=== PATIENT | male | born 1955 | race African-American/Black ===

== ENCOUNTER 2020-11-03 11:29 | Inpatient (IN) | payer OTHER ==
[2020-11-03] MEDS ORDERED: ACETAMINOPHEN 1000 MG/100 ML VIAL (NON FORMULARY) IVPB ONE (11:57)
[2020-11-03] MEDS ORDERED: LACTATED RINGERS SOLUTION 1,000 ML/1,000 ML INFUS.BAG IV STA (11:57)
[2020-11-03] MEDS ORDERED: ACETAMINOPHEN INJECTION 100 ML IVPB ONE (12:03)
[2020-11-03 12:14] LABS: BASO % 0.9 % (0-2.0); EOS % 5.8 % (0-4.5); HEMATOCRIT 33.6 % (35.4-49); HEMOGLOBIN 11.2 GM/dL (11.7-16.9); LYMPH % 13.6 % (8-40); MCH 33.6 pg (25.7-33.7); MCHC 33.2 g/dl (32.0-35.9); MEAN CELL VOLUME 101.1 fl (80-96); MEAN PLT VOLUME 7.3 fl (7.5-11.1); MONO % 9.9 % (3.8-10.2); NEUT % 69.8 % (42.8-82.8); PLATELET COUNT 410 K/MM3 (134-434); RBC 3.33 M/mm3 (4.00-5.60); RDW 16.4 % (11.9-15.9); WHITE BLOOD COUNT 15.6 K/mm3 (4.0-10.0)
[2020-11-03] MEDS ORDERED: morphine CARPU-JECT 8 MG/1 ML DISP.SYRIN IVPUSH ONE (12:20)
[2020-11-03 12:21] LABS: INR 0.97 (0.83-1.09); PROTHROMBIN TIME (PATIENT) 11.9 SEC (9.7-13.0)
[2020-11-03 12:23] LABS: ACTIVATED PTT 30.5 SECONDS (25.2-36.5)
[2020-11-03 12:37] LABS: ALBUMIN 2.8 g/dl (3.4-5.0); CALCIUM 9.1 mg/dL (8.5-10.1)
[2020-11-03 12:38] LABS: BLOOD UREA NITROGEN 76.5 mg/dL (7-18)
[2020-11-03 12:41] LABS: CREATININE 1.8 mg/dL (0.55-1.3)
[2020-11-03 12:42] LABS: BILIRUBIN,TOTAL 0.2 mg/dL (0.2-1); TOT PROT 7.6 g/dl (6.4-8.2)
[2020-11-03] MEDS ORDERED: PIPERACILLIN/TAZOB 2.25 GM 2.25 GM in DEXTROSE 5%-WATER - 50 ML IVPB ONE (12:44)
[2020-11-03] MEDS ORDERED: PIPERACILLIN/TAZOB 2.25 GM 2.25 GM/50 ML BAG IVPB ONE ×2 (13:04→19:24)
[2020-11-03] MEDS ORDERED: MORPHINE SULFATE 2 MG/ML VIAL ONE (13:04)
[2020-11-03 13:25] LABS: ANISOCYTOSIS 1+; MACROCYTOSIS 1+; PLATELET ESTIMATE NORMAL
[2020-11-03] MEDS ORDERED: PATIENT'S OWN MEDICATION (NON-FORMULARY) (Carboxymethylcellulose Sodium [Lubricant Eye Dro OU PRN (17:26)
[2020-11-03] MEDS ORDERED: ONDANSETRON *ODT* 4 MG TABLET SL PRN (17:26)
[2020-11-03] MEDS ORDERED: TORSEMIDE 100 MG TABLET PO SCH (17:30)
[2020-11-03] MEDS ORDERED: amLODIPine BESYLATE 5 MG TABLET (FP) GT SCH (17:30)
[2020-11-03] MEDS ORDERED: ARTIFICIAL TEARS (POLYVINYL ALCOHOL) OPTH DROPS OU PRN (17:36)
[2020-11-03] MEDS ORDERED: LACTATED RINGERS SOLUTION 1,000 ML IV SCH (17:45)
[2020-11-03] MEDS ORDERED: VANCOMYCIN 1 GM in D5W (PRE-DOCKED) 1,000 MG/250 ML IVPB SCH (18:15)
[2020-11-03] MEDS ORDERED: VANCOMYCIN 1 GRAM (PRE-DOCKED) 1,000 MG/250 ML BAG IVPB ONE (18:45)
[2020-11-03] MEDS ORDERED: CLINDAMYCIN 600MG PREMIX IVPB 600 MG/50 ML BAG IVPB ONE (19:24)
[2020-11-03] MEDS: CLINDAMYCIN 600MG PREMIX IVPB 600 MG/50 ML BAG IVPB SCH (19:27)
[2020-11-03] MEDS: PIPERACILLIN/TAZOB 2.25 GM 2.25 GM in DEXTROSE 5%-WATER - 50 ML IVPB SCH (19:45)
[2020-11-03] MEDS: CALCIUM ACETATE 667 MG CAPSULE (FP) GT SCH (19:45)
[2020-11-03] MEDS ORDERED: PT OWN MED DRAWER 7, Y5N ONE (21:31)
[2020-11-03] MEDS ORDERED: PATIENT'S OWN MEDICATION (NON-FORMULARY) (Omeprazole 20 MG Capsule.Dr) GT SCH (22:00)
[2020-11-03] MEDS: FAMOTIDINE 40 MG/5 ML ORAL SUSPENSION NR SCH (22:43)
[2020-11-03] MEDS: POLYETHYLENE GLYCOL 3350 119 GM BTL GT SCH (22:43)
[2020-11-03] MEDS: MIRTAZAPINE 15 MG TABLET (FP) GT SCH (22:43)
[2020-11-03] MEDS: DOCUSATE NA 100 MG/10 ML UNIT-DOSE CUPS GT SCH (22:43)
[2020-11-04] MEDS ORDERED: DEXTROSE 5%-WATER - 50 ML IVPB ONE ×2 (02:07→09:47)
[2020-11-04] MEDS ORDERED: PIPERACILLIN/TAZOBACTAM 2.25 GM VIAL IVPB ONE ×2 (02:07→09:47)
[2020-11-04] MEDS: PIPERACILLIN/TAZOB 2.25 GM 2.25 GM in DEXTROSE 5%-WATER - 50 ML IVPB SCH ×3 (02:08→17:43)
[2020-11-04] MEDS: CLINDAMYCIN 600MG PREMIX IVPB 600 MG/50 ML BAG IVPB SCH ×2 (02:52→11:10)
[2020-11-04] MEDS: LEVOTHYROXINE NA 100 MCG TABLET (FP) GT SCH (07:47)
[2020-11-04] MEDS ORDERED: ACETAMINOPHEN 1000 MG/100 ML VIAL (NON FORMULARY) IVPB PRN ×2 (08:56→17:50)
[2020-11-04] MEDS ORDERED: PT OWN MED DRAWER 7, Y5N ONE (09:47)
[2020-11-04 09:52] LABS: EPI CELLS >36 /uL (0-25.1); HYALINE CASTS 1 /uL (0-3.1); PH,URINE 6.5 (5.0-8.0); URINE APPEARANCE CLEAR; URINE BACTERIA 24 /uL (0-1359); URINE BILIRUBIN NEGATIVE (NEGATIVE); URINE COLOR YELLOW; URINE GLUCOSE (UA) NEGATIVE (NEGATIVE); URINE KETONE NEGATIVE (NEGATIVE); URINE LEUK ESTERASE 2+ (NEGATIVE); URINE NITRITE NEGATIVE (NEGATIVE); URINE PROTEIN NEGATIVE (NEGATIVE); URINE RBC 14 /uL (0-23.9); URINE UROBILINOGEN 0.2 mg/dL (0.2-1.0); URINE WBC 131 /uL (0-25.8)
[2020-11-04] MEDS ORDERED: TORSEMIDE 100 MG TABLET PO SCH (10:00)
[2020-11-04] MEDS ORDERED: CLOPIDOGREL BISULFATE 75 MG TABLET (FP) GT SCH (10:00)
[2020-11-04] MEDS ORDERED: ENOXAPARIN NA (PORCINE) 30 MG/0.3 ML DISP.SYRIN SQ SCH (10:00)
[2020-11-04] MEDS ORDERED: LEVOTHYROXINE SODIUM 100 MCG GT SCH (10:00)
[2020-11-04] MEDS ORDERED: PATIENT'S OWN MEDICATION (NON-FORMULARY) (Multivitamin [Multiple Vitamins] 1 EACH Tablet) GT SCH (10:00)
[2020-11-04] MEDS: DOCUSATE NA 100 MG/10 ML UNIT-DOSE CUPS GT SCH ×2 (11:10→22:17)
[2020-11-04] MEDS: CALCIUM ACETATE 667 MG CAPSULE (FP) GT SCH ×4 (11:11→17:43)
[2020-11-04] MEDS: LACTATED RINGERS SOLUTION 1,000 ML IV SCH (11:11)
[2020-11-04] MEDS: MULTIVIT-MINERALS ORAL LIQUID GT SCH (11:11)
[2020-11-04] MEDS: ASPIRIN 81 MG CHEWABLE TABLETS GT SCH (11:11)
[2020-11-04] MEDS: amLODIPine BESYLATE 2.5 MG TABLET (FP) GT SCH (11:12)
[2020-11-04] MEDS: FOLIC ACID 1 MG TABLET (FP) GT SCH (11:12)
[2020-11-04] MEDS: ZINC SULFATE 220 MG CAPSULE (FP) GT SCH (11:13)
[2020-11-04] MEDS: FAMOTIDINE 40 MG/5 ML ORAL SUSPENSION NR SCH ×2 (11:13→22:17)
[2020-11-04] MEDS: THIAMINE HCL 100 MG TABLET (FP) PO SCH (11:13)
[2020-11-04] MEDS ORDERED: VANCOMYCIN 1 GRAM (PRE-DOCKED) 1,000 MG/250 ML BAG IVPB SCH ×2 (12:15→19:00)
[2020-11-04 13:02] LABS: BASO % 0.5 % (0-2.0); EOS % 5.7 % (0-4.5); HEMATOCRIT 33.9 % (35.4-49); LYMPH % 7.3 % (8-40); MCH 33.4 pg (25.7-33.7); MCHC 32.6 g/dl (32.0-35.9); MEAN CELL VOLUME 102.6 fl (80-96); MEAN PLT VOLUME 7.5 fl (7.5-11.1); NEUT % 80.5 % (42.8-82.8); PLATELET COUNT 419 K/MM3 (134-434); RDW 16.5 % (11.9-15.9); RETICULOCYTES 2.26 % (0.5-1.5)
[2020-11-04 13:24] LABS: CALCIUM 9.1 mg/dL (8.5-10.1)
[2020-11-04 13:25] LABS: ALBUMIN 2.6 g/dl (3.4-5.0); INR 1.1 (0.83-1.09); MAGNESIUM 2.7 mg/dL (1.8-2.4); PROTHROMBIN TIME (PATIENT) 13.3 SEC (9.7-13.0)
[2020-11-04 13:28] LABS: CREATININE 1.8 mg/dL (0.55-1.3); PHOSPHOROUS 4.6 mg/dL (2.5-4.9)
[2020-11-04 13:29] LABS: BILIRUBIN,TOTAL 0.6 mg/dL (0.2-1); TOT PROT 7.3 g/dl (6.4-8.2)
[2020-11-04] MEDS ORDERED: SODIUM CHLORIDE 250 ML IV PRN (15:40)
[2020-11-04 17:08] VITALS: BMI 15.6
[2020-11-04] MEDS ORDERED: PIPERACILLIN/TAZOB 2.25 GM 2.25 GM in DEXTROSE 5%-WATER - 50 ML IVPB SCH (18:00)
[2020-11-04 21:15] LABS: EPI CELLS 10 /uL (0-25.1); HYALINE CASTS 0 /uL (0-3.1); PH,URINE 6.5 (5.0-8.0); URINE APPEARANCE CLOUDY; URINE BACTERIA 228 /uL (0-1359); URINE BILIRUBIN NEGATIVE (NEGATIVE); URINE COLOR YELLOW; URINE GLUCOSE (UA) NEGATIVE (NEGATIVE); URINE KETONE NEGATIVE (NEGATIVE); URINE LEUK ESTERASE 3+ (NEGATIVE); URINE NITRITE NEGATIVE (NEGATIVE); URINE PROTEIN TRACE (NEGATIVE); URINE RBC 11 /uL (0-23.9); URINE UROBILINOGEN 0.2 mg/dL (0.2-1.0); URINE WBC 599 /uL (0-25.8)
[2020-11-04] MEDS: MIRTAZAPINE 15 MG TABLET (FP) GT SCH (22:17)
[2020-11-04] MEDS: POLYETHYLENE GLYCOL 3350 119 GM BTL GT SCH (22:17)
[2020-11-05] MEDS ORDERED: PIPERACILLIN/TAZOBACTAM 2.25 GM VIAL IVPB ONE ×3 (01:48→16:59)
[2020-11-05] MEDS ORDERED: DEXTROSE 5%-WATER - 50 ML IVPB ONE ×3 (01:49→16:59)
[2020-11-05] MEDS: LACTATED RINGERS SOLUTION 1,000 ML IV SCH ×3 (02:09→14:24)
[2020-11-05] MEDS: PIPERACILLIN/TAZOB 2.25 GM 2.25 GM in DEXTROSE 5%-WATER - 50 ML IVPB SCH ×3 (02:09→17:16)
[2020-11-05] MEDS: CALCIUM ACETATE 667 MG CAPSULE (FP) GT SCH ×3 (08:00→17:13)
[2020-11-05] MEDS: LEVOTHYROXINE NA 100 MCG TABLET (FP) GT SCH (08:04)
[2020-11-05 08:42] LABS: HEMATOCRIT 30.1 % (35.4-49); MCH 34.5 pg (25.7-33.7); MCHC 33.4 g/dl (32.0-35.9); MEAN CELL VOLUME 103.2 fl (80-96); MEAN PLT VOLUME 7.6 fl (7.5-11.1); PLATELET COUNT 323 K/MM3 (134-434); RBC 2.91 M/mm3 (4.00-5.60); RDW 16.8 % (11.9-15.9); WHITE BLOOD COUNT 9.8 K/mm3 (4.0-10.0)
[2020-11-05 09:10] LABS: MAGNESIUM 2.5 mg/dL (1.8-2.4)
[2020-11-05 09:13] LABS: CREATININE 1.4 mg/dL (0.55-1.3); PHOSPHOROUS 2.8 mg/dL (2.5-4.9)
[2020-11-05 09:14] LABS: BILIRUBIN,TOTAL 0.4 mg/dL (0.2-1); TOT PROT 5.4 g/dl (6.4-8.2)
[2020-11-05 09:27] LABS: ALBUMIN 1.8 g/dl (3.4-5.0); CALCIUM 7.7 mg/dL (8.5-10.1)
[2020-11-05] MEDS: FOLIC ACID 1 MG TABLET (FP) GT SCH (12:09)
[2020-11-05] MEDS: ZINC SULFATE 220 MG CAPSULE (FP) GT SCH (12:09)
[2020-11-05] MEDS: THIAMINE HCL 100 MG TABLET (FP) PO SCH (12:09)
[2020-11-05] MEDS: DOCUSATE NA 100 MG/10 ML UNIT-DOSE CUPS GT SCH ×2 (12:09→22:37)
[2020-11-05] MEDS: ASPIRIN 81 MG CHEWABLE TABLETS GT SCH (12:10)
[2020-11-05] MEDS: MULTIVIT-MINERALS ORAL LIQUID GT SCH (12:10)
[2020-11-05] MEDS: FAMOTIDINE 40 MG/5 ML ORAL SUSPENSION NR SCH ×2 (12:11→22:38)
[2020-11-05] MEDS: HEPARIN NA (PORCINE) 5,000 UNITS/ML 1ML VIAL SQ SCH (22:37)
[2020-11-05] MEDS: MIRTAZAPINE 15 MG TABLET (FP) GT SCH (22:37)
[2020-11-05] MEDS: POLYETHYLENE GLYCOL 3350 119 GM BTL GT SCH (22:39)
[2020-11-06] MEDS ORDERED: DEXTROSE 5%-WATER - 50 ML IVPB ONE ×3 (02:51→17:26)
[2020-11-06] MEDS ORDERED: PIPERACILLIN/TAZOBACTAM 2.25 GM VIAL IVPB ONE ×3 (02:51→17:26)
[2020-11-06] MEDS: PIPERACILLIN/TAZOB 2.25 GM 2.25 GM in DEXTROSE 5%-WATER - 50 ML IVPB SCH ×3 (02:58→17:30)
[2020-11-06] MEDS: HEPARIN NA (PORCINE) 5,000 UNITS/ML 1ML VIAL SQ SCH ×3 (06:29→22:09)
[2020-11-06] MEDS: LEVOTHYROXINE NA 100 MCG TABLET (FP) GT SCH (06:29)
[2020-11-06 09:55] LABS: HEMATOCRIT 33.1 % (35.4-49); HEMOGLOBIN 10.8 GM/dL (11.7-16.9); MCH 34.2 pg (25.7-33.7); MCHC 32.6 g/dl (32.0-35.9); MEAN CELL VOLUME 104.9 fl (80-96); MEAN PLT VOLUME 7.4 fl (7.5-11.1); PLATELET COUNT 375 K/MM3 (134-434); RBC 3.16 M/mm3 (4.00-5.60); RDW 16.5 % (11.9-15.9); WHITE BLOOD COUNT 10.7 K/mm3 (4.0-10.0)
[2020-11-06] MEDS ORDERED: CLOPIDOGREL BISULFATE 75 MG TABLET (FP) PO SCH (10:00)
[2020-11-06 10:12] LABS: BLOOD UREA NITROGEN 45.6 mg/dL (7-18); MAGNESIUM 2.6 mg/dL (1.8-2.4)
[2020-11-06 10:15] LABS: CREATININE 1.6 mg/dL (0.55-1.3); PHOSPHOROUS 2.6 mg/dL (2.5-4.9)
[2020-11-06 10:16] LABS: BILIRUBIN,TOTAL 0.2 mg/dL (0.2-1)
[2020-11-06 10:18] LABS: ALBUMIN 2.3 g/dl (3.4-5.0); CALCIUM 8.4 mg/dL (8.5-10.1); TOT PROT 6.6 g/dl (6.4-8.2)
[2020-11-06] MEDS: ZINC SULFATE 220 MG CAPSULE (FP) GT SCH (10:45)
[2020-11-06] MEDS: THIAMINE HCL 100 MG TABLET (FP) PO SCH (10:45)
[2020-11-06] MEDS: ASPIRIN 81 MG CHEWABLE TABLETS GT SCH (10:45)
[2020-11-06] MEDS: CALCIUM ACETATE 667 MG CAPSULE (FP) GT SCH ×3 (10:45→17:39)
[2020-11-06] MEDS: FOLIC ACID 1 MG TABLET (FP) GT SCH (10:46)
[2020-11-06] MEDS: CLOPIDOGREL BISULFATE 75 MG TABLET (FP) GT SCH (10:46)
[2020-11-06] MEDS: DOCUSATE NA 100 MG/10 ML UNIT-DOSE CUPS GT SCH ×2 (10:46→22:09)
[2020-11-06] MEDS: MULTIVIT-MINERALS ORAL LIQUID GT SCH (10:46)
[2020-11-06] MEDS: FAMOTIDINE 40 MG/5 ML ORAL SUSPENSION NR SCH ×2 (10:48→22:09)
[2020-11-06] MEDS: amLODIPine BESYLATE 2.5 MG TABLET (FP) GT SCH (10:55)
[2020-11-06] MEDS: DEXTROSE 5%-WATER - 1,000 ML IV SCH (15:20)
[2020-11-06] MEDS: LACTATED RINGERS SOLUTION 1,000 ML IV SCH (15:21)
[2020-11-06] MEDS: MIRTAZAPINE 15 MG TABLET (FP) GT SCH (22:09)
[2020-11-06] MEDS: POLYETHYLENE GLYCOL 3350 119 GM BTL GT SCH (22:11)
[2020-11-07] MEDS ORDERED: PIPERACILLIN/TAZOBACTAM 2.25 GM VIAL IVPB ONE ×3 (01:18→16:41)
[2020-11-07] MEDS ORDERED: DEXTROSE 5%-WATER - 50 ML IVPB ONE ×3 (01:19→16:41)
[2020-11-07] MEDS: PIPERACILLIN/TAZOB 2.25 GM 2.25 GM in DEXTROSE 5%-WATER - 50 ML IVPB SCH ×3 (02:24→17:25)
[2020-11-07] MEDS: HEPARIN NA (PORCINE) 5,000 UNITS/ML 1ML VIAL SQ SCH ×4 (05:45→21:29)
[2020-11-07] MEDS: LEVOTHYROXINE NA 100 MCG TABLET (FP) GT SCH (06:02)
[2020-11-07 09:14] LABS: ALBUMIN 2.1 g/dl (3.4-5.0)
[2020-11-07 09:15] LABS: BLOOD UREA NITROGEN 34.6 mg/dL (7-18); CALCIUM 8.2 mg/dL (8.5-10.1)
[2020-11-07 09:16] LABS: TOT PROT 6.3 g/dl (6.4-8.2)
[2020-11-07 09:17] LABS: CREATININE 1.4 mg/dL (0.55-1.3)
[2020-11-07 09:22] LABS: BILIRUBIN,TOTAL 0.2 mg/dL (0.2-1)
[2020-11-07] MEDS ORDERED: POVIDONE-IODINE 10% SOLN 118 ML BOTTLE TP ONE (09:41)
[2020-11-07] MEDS ORDERED: PT OWN MED DRAWER 7, Y5N ONE (10:50)
[2020-11-07] MEDS ORDERED: POTASSIUM CHLORIDE ORAL LIQUID 20 MEQ/15 ML PO ONE (10:53)
[2020-11-07] MEDS ORDERED: POTASSIUM CHLORIDE TABS 20 MEQ TABLET.ER (FP) PO ONE (10:53)
[2020-11-07] MEDS ORDERED: POTASSIUM CHLORIDE ORAL LIQUID 20 MEQ/15 ML GT ONE (10:53)
[2020-11-07] MEDS: SILVER SULFADIAZINE 1% TOP CREAM 50 GM JAR TP SCH (10:54)
[2020-11-07] MEDS: CALCIUM ACETATE 667 MG CAPSULE (FP) GT SCH ×4 (10:54→16:31)
[2020-11-07] MEDS: DOCUSATE NA 100 MG/10 ML UNIT-DOSE CUPS GT SCH ×2 (10:54→21:30)
[2020-11-07] MEDS: CLOPIDOGREL BISULFATE 75 MG TABLET (FP) GT SCH (10:54)
[2020-11-07] MEDS: ZINC SULFATE 220 MG CAPSULE (FP) GT SCH (10:54)
[2020-11-07] MEDS: FOLIC ACID 1 MG TABLET (FP) GT SCH (10:54)
[2020-11-07] MEDS: ASPIRIN 81 MG CHEWABLE TABLETS GT SCH (10:54)
[2020-11-07] MEDS: THIAMINE HCL 100 MG TABLET (FP) PO SCH (10:54)
[2020-11-07] MEDS: MULTIVIT-MINERALS ORAL LIQUID GT SCH (10:55)
[2020-11-07] MEDS: FAMOTIDINE 40 MG/5 ML ORAL SUSPENSION NR SCH ×2 (10:56→23:01)
[2020-11-07] MEDS: KCL 10 MEQ IVPB 10 MEQ/100 ML INFUS.BAG IVPB SCH ×3 (11:05→16:30)
[2020-11-07] MEDS: amLODIPine BESYLATE 2.5 MG TABLET (FP) GT SCH (11:06)
[2020-11-07] MEDS: POTASSIUM CHLORIDE 10 MEQ in DEXTROSE 5%-WATER - 1,000 ML IV SCH ×2 (14:50→16:30)
[2020-11-07] MEDS: DEXTROSE 5%-WATER - 1,000 ML IV SCH (17:26)
[2020-11-07] MEDS: POLYETHYLENE GLYCOL 3350 119 GM BTL GT SCH (21:30)
[2020-11-07] MEDS: MIRTAZAPINE 15 MG TABLET (FP) GT SCH (22:00)
[2020-11-08] MEDS ORDERED: PIPERACILLIN/TAZOBACTAM 2.25 GM VIAL IVPB ONE ×3 (00:59→17:37)
[2020-11-08] MEDS ORDERED: DEXTROSE 5%-WATER - 50 ML IVPB ONE ×3 (00:59→17:37)
[2020-11-08] MEDS: PIPERACILLIN/TAZOB 2.25 GM 2.25 GM in DEXTROSE 5%-WATER - 50 ML IVPB SCH ×3 (01:40→17:45)
[2020-11-08] MEDS: HEPARIN NA (PORCINE) 5,000 UNITS/ML 1ML VIAL SQ SCH ×3 (05:10→21:59)
[2020-11-08] MEDS: LEVOTHYROXINE NA 100 MCG TABLET (FP) GT SCH (06:08)
[2020-11-08] MEDS: SILVER SULFADIAZINE 1% TOP CREAM 50 GM JAR TP SCH (11:03)
[2020-11-08] MEDS: FOLIC ACID 1 MG TABLET (FP) GT SCH (11:03)
[2020-11-08] MEDS: THIAMINE HCL 100 MG TABLET (FP) PO SCH (11:04)
[2020-11-08] MEDS: ASPIRIN 81 MG CHEWABLE TABLETS GT SCH (11:04)
[2020-11-08] MEDS: CLOPIDOGREL BISULFATE 75 MG TABLET (FP) GT SCH (11:04)
[2020-11-08] MEDS: CALCIUM ACETATE 667 MG CAPSULE (FP) GT SCH ×3 (11:05→17:45)
[2020-11-08] MEDS: DOCUSATE NA 100 MG/10 ML UNIT-DOSE CUPS GT SCH ×2 (11:05→21:59)
[2020-11-08] MEDS: ZINC SULFATE 220 MG CAPSULE (FP) GT SCH (11:05)
[2020-11-08] MEDS: MULTIVIT-MINERALS ORAL LIQUID GT SCH (11:05)
[2020-11-08] MEDS: FAMOTIDINE 40 MG/5 ML ORAL SUSPENSION NR SCH ×2 (11:06→22:00)
[2020-11-08] MEDS ORDERED: ACETAMINOPHEN 325 MG TABLET (FP) NR PRN (11:11)
[2020-11-08] MEDS ORDERED: POTASSIUM CHLORIDE ORAL LIQUID 20 MEQ/15 ML GT ONE (11:13)
[2020-11-08] MEDS ORDERED: ACETAMINOPHEN 650 MG/20.3 ML ORAL SOLUTION (CUPS) GT PRN (11:18)
[2020-11-08] MEDS ORDERED: morphine SULFATE 4 MG/ML VIAL IVPUSH ONE (17:01)
[2020-11-08] MEDS ORDERED: PT OWN MED DRAWER 7, Y5N ONE (21:14)
[2020-11-08] MEDS ORDERED: INSULIN (NOVOLOG) ASPART 100 UNITS/ML 10ML VIAL ONE (21:15)
[2020-11-08] MEDS: POLYETHYLENE GLYCOL 3350 119 GM BTL GT SCH (21:59)
[2020-11-08] MEDS: MIRTAZAPINE 15 MG TABLET (FP) GT SCH (21:59)
[2020-11-09] MEDS ORDERED: DEXTROSE 5%-WATER - 50 ML IVPB ONE ×3 (01:59→17:57)
[2020-11-09] MEDS ORDERED: PIPERACILLIN/TAZOBACTAM 2.25 GM VIAL IVPB ONE ×3 (01:59→17:57)
[2020-11-09] MEDS: PIPERACILLIN/TAZOB 2.25 GM 2.25 GM in DEXTROSE 5%-WATER - 50 ML IVPB SCH ×3 (02:20→18:31)
[2020-11-09] MEDS: LEVOTHYROXINE NA 100 MCG TABLET (FP) GT SCH (06:06)
[2020-11-09] MEDS: HEPARIN NA (PORCINE) 5,000 UNITS/ML 1ML VIAL SQ SCH ×3 (06:06→22:55)
[2020-11-09 08:33] LABS: BASO % 0.9 % (0-2.0); EOS % 13.7 % (0-4.5); HEMATOCRIT 32.1 % (35.4-49); HEMOGLOBIN 10.3 GM/dL (11.7-16.9); LYMPH % 12.5 % (8-40); MCH 33.2 pg (25.7-33.7); MEAN CELL VOLUME 103.6 fl (80-96); MEAN PLT VOLUME 7.7 fl (7.5-11.1); MONO % 8.9 % (3.8-10.2); PLATELET COUNT 393 K/MM3 (134-434); RBC 3.09 M/mm3 (4.00-5.60); RDW 16.6 % (11.9-15.9)
[2020-11-09 08:54] LABS: ALBUMIN 2.2 g/dl (3.4-5.0); BLOOD UREA NITROGEN 26.3 mg/dL (7-18); CALCIUM 9.1 mg/dL (8.5-10.1); MAGNESIUM 2.3 mg/dL (1.8-2.4)
[2020-11-09 08:57] LABS: CREATININE 1.5 mg/dL (0.55-1.3); PHOSPHOROUS 4.7 mg/dL (2.5-4.9)
[2020-11-09 08:58] LABS: BILIRUBIN,TOTAL 0.2 mg/dL (0.2-1); TOT PROT 6.4 g/dl (6.4-8.2)
[2020-11-09] MEDS: CALCIUM ACETATE 667 MG CAPSULE (FP) GT SCH ×3 (09:25→18:31)
[2020-11-09 10:24] LABS: ANISOCYTOSIS 2+; MACROCYTOSIS 0; PLATELET ESTIMATE NORMAL
[2020-11-09] MEDS: FOLIC ACID 1 MG TABLET (FP) GT SCH (11:25)
[2020-11-09] MEDS: ASPIRIN 81 MG CHEWABLE TABLETS GT SCH (11:25)
[2020-11-09] MEDS: CLOPIDOGREL BISULFATE 75 MG TABLET (FP) GT SCH (11:25)
[2020-11-09] MEDS: THIAMINE HCL 100 MG TABLET (FP) PO SCH (11:25)
[2020-11-09] MEDS: FAMOTIDINE 40 MG/5 ML ORAL SUSPENSION NR SCH ×2 (11:26→22:53)
[2020-11-09] MEDS: ZINC SULFATE 220 MG CAPSULE (FP) GT SCH (11:26)
[2020-11-09] MEDS: DOCUSATE NA 100 MG/10 ML UNIT-DOSE CUPS GT SCH ×3 (11:26→23:00)
[2020-11-09] MEDS: SILVER SULFADIAZINE 1% TOP CREAM 50 GM JAR TP SCH (11:27)
[2020-11-09] MEDS: MULTIVIT-MINERALS ORAL LIQUID GT SCH (11:27)
[2020-11-09] MEDS: amLODIPine BESYLATE 2.5 MG TABLET (FP) GT SCH (11:30)
[2020-11-09] MEDS: POLYETHYLENE GLYCOL 3350 119 GM BTL GT SCH (22:54)
[2020-11-09] MEDS: MIRTAZAPINE 15 MG TABLET (FP) GT SCH (22:54)
[2020-11-10] MEDS: PIPERACILLIN/TAZOB 2.25 GM 2.25 GM in DEXTROSE 5%-WATER - 50 ML IVPB SCH ×3 (01:24→18:13)
[2020-11-10] MEDS ORDERED: PIPERACILLIN/TAZOBACTAM 2.25 GM VIAL IVPB ONE ×3 (01:24→18:04)
[2020-11-10] MEDS ORDERED: DEXTROSE 5%-WATER - 50 ML IVPB ONE ×3 (01:24→18:04)
[2020-11-10] MEDS: HEPARIN NA (PORCINE) 5,000 UNITS/ML 1ML VIAL SQ SCH ×3 (05:24→21:28)
[2020-11-10] MEDS: LEVOTHYROXINE NA 100 MCG TABLET (FP) GT SCH (06:00)
[2020-11-10] MEDS: CALCIUM ACETATE 667 MG CAPSULE (FP) GT SCH ×3 (10:00→18:14)
[2020-11-10 11:16] LABS: HEMATOCRIT 31.4 % (35.4-49); HEMOGLOBIN 10.3 GM/dL (11.7-16.9); MCH 33.5 pg (25.7-33.7); MCHC 32.8 g/dl (32.0-35.9); MEAN CELL VOLUME 102.3 fl (80-96); MEAN PLT VOLUME 7.5 fl (7.5-11.1); PLATELET COUNT 409 K/MM3 (134-434); RBC 3.07 M/mm3 (4.00-5.60); RDW 16.2 % (11.9-15.9); WHITE BLOOD COUNT 9.8 K/mm3 (4.0-10.0)
[2020-11-10] MEDS: CLOPIDOGREL BISULFATE 75 MG TABLET (FP) GT SCH (11:33)
[2020-11-10] MEDS: FAMOTIDINE 40 MG/5 ML ORAL SUSPENSION NR SCH ×2 (11:33→21:28)
[2020-11-10] MEDS: FOLIC ACID 1 MG TABLET (FP) GT SCH (11:33)
[2020-11-10] MEDS: THIAMINE HCL 100 MG TABLET (FP) PO SCH (11:34)
[2020-11-10] MEDS: DOCUSATE NA 100 MG/10 ML UNIT-DOSE CUPS GT SCH ×2 (11:34→21:24)
[2020-11-10] MEDS: ASPIRIN 81 MG CHEWABLE TABLETS GT SCH (11:34)
[2020-11-10] MEDS: ZINC SULFATE 220 MG CAPSULE (FP) GT SCH (11:34)
[2020-11-10] MEDS: MULTIVIT-MINERALS ORAL LIQUID GT SCH (11:34)
[2020-11-10 11:47] LABS: CALCIUM 9.5 mg/dL (8.5-10.1)
[2020-11-10 11:48] LABS: BLOOD UREA NITROGEN 24.2 mg/dL (7-18)
[2020-11-10] MEDS: amLODIPine BESYLATE 2.5 MG TABLET (FP) GT SCH (11:48)
[2020-11-10 11:51] LABS: CREATININE 1.6 mg/dL (0.55-1.3)
[2020-11-10] MEDS: SILVER SULFADIAZINE 1% TOP CREAM 50 GM JAR TP SCH (13:36)
[2020-11-10] MEDS ORDERED: POVIDONE-IODINE OINTMENT 10% - 28.4 GM TUBE TP ONE (14:00)
[2020-11-10] MEDS: POLYETHYLENE GLYCOL 3350 119 GM BTL GT SCH (21:24)
[2020-11-10] MEDS: MIRTAZAPINE 15 MG TABLET (FP) GT SCH (21:28)
[2020-11-11] MEDS ORDERED: PIPERACILLIN/TAZOBACTAM 2.25 GM VIAL IVPB ONE ×3 (01:09→08:39)
[2020-11-11] MEDS ORDERED: DEXTROSE 5%-WATER - 50 ML IVPB ONE ×3 (01:10→08:39)
[2020-11-11] MEDS: PIPERACILLIN/TAZOB 2.25 GM 2.25 GM in DEXTROSE 5%-WATER - 50 ML IVPB SCH ×2 (01:45→10:18)
[2020-11-11] MEDS: LEVOTHYROXINE NA 100 MCG TABLET (FP) GT SCH (06:31)
[2020-11-11] MEDS: HEPARIN NA (PORCINE) 5,000 UNITS/ML 1ML VIAL SQ SCH ×2 (06:31→13:15)
[2020-11-11] MEDS ORDERED: PT OWN MED DRAWER 7, Y5N ONE ×2 (10:13→12:36)
[2020-11-11] MEDS: DOCUSATE NA 100 MG/10 ML UNIT-DOSE CUPS GT SCH ×2 (10:18→11:22)
[2020-11-11] MEDS: ASPIRIN 81 MG CHEWABLE TABLETS GT SCH (10:19)
[2020-11-11] MEDS: CALCIUM ACETATE 667 MG CAPSULE (FP) GT SCH ×2 (10:19→13:15)
[2020-11-11] MEDS: THIAMINE HCL 100 MG TABLET (FP) PO SCH (10:19)
[2020-11-11] MEDS: CLOPIDOGREL BISULFATE 75 MG TABLET (FP) GT SCH (10:19)
[2020-11-11] MEDS: FOLIC ACID 1 MG TABLET (FP) GT SCH (10:19)
[2020-11-11] MEDS: ZINC SULFATE 220 MG CAPSULE (FP) GT SCH (10:19)
[2020-11-11] MEDS: MULTIVIT-MINERALS ORAL LIQUID GT SCH (10:20)
[2020-11-11] MEDS: amLODIPine BESYLATE 2.5 MG TABLET (FP) GT SCH (10:23)
[2020-11-11] MEDS: FAMOTIDINE 40 MG/5 ML ORAL SUSPENSION NR SCH (13:24)
[2020-11-11 13:52] VITALS: BP 114/62; PULSE 79; TEMP 97.3
== END 2020-11-11 14:06 | DRG 871 ==
LOC: JER 11:29 → JERBED 17:53 → J5S 20:26
PROVIDERS: ATTEND Internal Medicine
PROC: 0HBKXZZ Excision of Right Lower Leg Skin, External Approach (ICD-10-PCS; principal; 2020-11-06)
PROC: 05PYX3Z Removal of Infusion Device from Upper Vein, External Approach (ICD-10-PCS; 2020-11-10)
DX: A41.9 Sepsis, unspecified organism (principal); E43 Unspecified severe protein-calorie malnutrition; N18.6 End stage renal disease; R64 Cachexia; Z68.1 Body mass index [BMI] 19.9 or less, adult; M86.9 Osteomyelitis, unspecified; J96.10 Chronic respiratory failure, unspecified whether with hypoxia or hypercapnia; E87.0 Hyperosmolality and hypernatremia; L97.919 Non-pressure chronic ulcer of unspecified part of right lower leg with unspecified severity; I70.239 Atherosclerosis of native arteries of right leg with ulceration of unspecified site; N18.9 Chronic kidney disease, unspecified; Z93.0 Tracheostomy status; Z93.1 Gastrostomy status; L89.610 Pressure ulcer of right heel, unstageable; L89.620 Pressure ulcer of left heel, unstageable; E03.9 Hypothyroidism, unspecified; I25.10 Atherosclerotic heart disease of native coronary artery without angina pectoris; D72.829 Elevated white blood cell count, unspecified; E87.6 Hypokalemia; R74.01 Elevation of levels of liver transaminase levels
CPT/HCPCS: 36415; 71045-TC-FY; 73590-TC-RT-FY; 73718-TC-RT; 74230-TC-FY; 76775-TC; 80048; 80053; 80074; 81003; 82272; 82436; 82570; 82607; 82728; 82746; 82962; 83540; 83550; 83605; 83735; 84100; 84133; 84300; 84443; 85025; 85027; 85045; 85610; 85651; 85730; 86140; 87040; 87086; 87804; 92611-GN; 93005; 93010; 97116-GP; 97162-GP; 99291; C9803; G0480; J0131; J1644; U0003; U0005

== ENCOUNTER 2020-12-22 10:25 | Emergency (ER) | payer OTHER ==
[2020-12-22 11:14] VITALS: BMI 24.5
[2020-12-22 16:10] VITALS: BP 112/78; PULSE 90; TEMP 98.2
== END 2020-12-22 16:11 | disposition home or self-care (01) ==
LOC: JER 10:25
DX: Z48.00 Encounter for change or removal of nonsurgical wound dressing (principal)
CPT/HCPCS: 99281-25; G0463-25

== ENCOUNTER 2021-02-20 09:56 | Inpatient (IN) | payer OTHER ==
[2021-02-20] MEDS ORDERED: ACETAMINOPHEN INJECTION 100 ML IVPB ONE (10:17)
[2021-02-20 10:42] LABS: VENOUS BASE EXCESS -8.4 mmol/L (-2-2); VENOUS O2 SATURATION 68.5 % (70-80); VENOUS PCO2 46.3 mmHg (38-52); VENOUS PH 7.232 (7.310-7.410)
[2021-02-20] MEDS ORDERED: VANCOMYCIN 1 GM in D5W (PRE-DOCKED) 1,000 MG/250 ML IVPB ONE (10:45)
[2021-02-20] MEDS ORDERED: PIPERACILLIN/TAZOB 3.375 GM 3.375 GM in DEXTROSE 5%-WATER - 50 ML IVPB ONE (10:46)
[2021-02-20 10:48] LABS: HEMOGLOBIN 12.2 GM/dL (11.7-16.9); MCH 34.8 pg (25.7-33.7); MCHC 32.9 g/dl (32.0-35.9); MEAN CELL VOLUME 105.7 fl (80-96); RDW 17.6 % (11.9-15.9)
[2021-02-20 10:49] LABS: ARTERIAL BLD GAS O2 SATURATION 94.2 % (95-98); ARTERIAL BLOOD GAS BASE EXCESS -10.9 mmol/L (-2-2); ARTERIAL BLOOD GAS PO2 78.3 mmHg (80-100); ARTERIAL BLOOD GAS pH 7.277 (7.350-7.450)
[2021-02-20 10:50] LABS: WHITE BLOOD COUNT 6.8 K/mm3 (4.0-10.0)
[2021-02-20 10:52] LABS: MEAN PLT VOLUME 7.4 fl (7.5-11.1); PLATELET COUNT 292 10^3/uL (134-434)
[2021-02-20 10:58] LABS: INR 1.06 (0.83-1.09)
[2021-02-20 11:00] LABS: ACTIVATED PTT 27.8 SECONDS (25.2-36.5)
[2021-02-20 11:05] LABS: BLOOD UREA NITROGEN 88.7 mg/dL (7-18); CALCIUM 9.5 mg/dL (8.5-10.1)
[2021-02-20 11:08] LABS: CREATININE 3.2 mg/dL (0.55-1.3)
[2021-02-20 11:10] LABS: BILIRUBIN,TOTAL 0.6 mg/dL (0.2-1); TOT PROT 7.4 g/dl (6.4-8.2)
[2021-02-20 11:22] LABS: LACTIC ACID 14.4 mmol/L (0.4-2.0)
[2021-02-20] MEDS ORDERED: VANCOMYCIN 1 GRAM (PRE-DOCKED) 1,000 MG/250 ML BAG IVPB ONE ×2 (11:24→11:48)
[2021-02-20] MEDS ORDERED: PIPERACILLIN/TAZOB 3.375 GM 3.375 GM/50 ML BAG IVPB ONE ×2 (11:24→11:48)
[2021-02-20] MEDS: KCL 10 MEQ IVPB 10 MEQ/100 ML INFUS.BAG IVPB SCH ×6 (12:02→21:40)
[2021-02-20 12:08] LABS: MAGNESIUM 2.4 mg/dL (1.8-2.4)
[2021-02-20 13:10] LABS: URINE COLOR STRAW
[2021-02-20 13:11] LABS: PH,URINE 6.5 (5.0-8.0); URINE APPEARANCE TURBID; URINE BILIRUBIN NEGATIVE (NEGATIVE); URINE GLUCOSE (UA) NEGATIVE (NEGATIVE); URINE KETONE NEGATIVE (NEGATIVE)
[2021-02-20 13:12] LABS: URINE LEUK ESTERASE 3+ (NEGATIVE); URINE NITRITE 2+ (NEGATIVE); URINE PROTEIN 1+ (NEGATIVE); URINE UROBILINOGEN 0.2 mg/dL (0.2-1.0)
[2021-02-20 13:16] LABS: EPI CELLS 87 /uL (0-25.1); HYALINE CASTS 23.09 /uL (0-3.1); URINE BACTERIA 3742.4 /uL (0-1359); URINE RBC 2179.8 /uL (0-23.9); URINE WBC 35269.8 /uL (0-25.8)
[2021-02-20 13:17] LABS: ANISOCYTOSIS 1+; MACROCYTOSIS 1+; PLATELET ESTIMATE NORMAL
[2021-02-20 13:22] LABS: YEAST NON SEEN (NEGATIVE)
[2021-02-20] MEDS ORDERED: MORPHINE SULFATE 2 MG/ML VIAL IVPUSH ONE (14:42)
[2021-02-20] MEDS ORDERED: MORPHINE SULFATE 2 MG/ML VIAL ONE (14:44)
[2021-02-20] MEDS: ALBUTEROL SO4 2.5/IPRATROPIUM 0.5 INH SOL 3 ML VIAL.NEB. NEB PRN (15:09)
[2021-02-20] MEDS: THIAMINE HCL 100 MG TABLET (FP) NGT SCH (15:11)
[2021-02-20] MEDS: FOLIC ACID 1 MG TABLET (FP) PEG SCH (15:11)
[2021-02-20] MEDS: CLOPIDOGREL BISULFATE 75 MG TABLET (FP) PEG SCH (15:11)
[2021-02-20] MEDS: PANTOPRAZOLE SODIUM 40 MG VIAL IVPUSH SCH (15:11)
[2021-02-20] MEDS ORDERED: DEXTROSE 5%-WATER - 950 ML with SODIUM BICARBONATE 8.4% - 150 MEQ IV SCH (15:15)
[2021-02-20 15:31] LABS: LACTIC ACID 10.3 mmol/L (0.4-2.0)
[2021-02-20] MEDS ORDERED: SODIUM BICARBONATE 8.4% 50 MEQ/50 ML DISP.SYRIN IVPUSH ONE (15:33)
[2021-02-20] MEDS ORDERED: SODIUM BICARBONATE 8.4% - 50 ML ONE (15:34)
[2021-02-20 15:38] LABS: ARTERIAL BLOOD GAS BASE EXCESS -7.9 mmol/L (-2-2); ARTERIAL BLOOD GAS PO2 51.7 mmHg (80-100); ARTERIAL BLOOD GAS pH 7.337 (7.350-7.450)
[2021-02-20 15:40] LABS: ALLENS TEST POSITIVE
[2021-02-20] MEDS: DEXTROSE 5%-WATER - 950 ML with SODIUM BICARBONATE 8.4% - 150 MEQ IV SCH (15:45)
[2021-02-20] MEDS ORDERED: ELECTROLYTE-148 SOLN 1,000 ML IV SCH (15:45)
[2021-02-20] MEDS ORDERED: VASOPRESSIN 40 UNITS/100 ML BAG IV SCH (16:30)
[2021-02-20] MEDS: VASOPRESSIN 40 UNITS/100 ML BAG IV SCH (16:41)
[2021-02-20 17:20] LABS: BLOOD UREA NITROGEN 92.9 mg/dL (7-18)
[2021-02-20 17:23] LABS: CREATININE 3.3 mg/dL (0.55-1.3)
[2021-02-20 17:24] LABS: BILIRUBIN,TOTAL 0.4 mg/dL (0.2-1); TOT PROT 5.6 g/dl (6.4-8.2)
[2021-02-20] MEDS ORDERED: CALCIUM ACETATE 667 MG CAPSULE (FP) PEG SCH (17:30)
[2021-02-20 17:37] LABS: ALBUMIN 2.2 g/dl (3.4-5.0)
[2021-02-20] MEDS ORDERED: PIPERACILLIN/TAZOB 2.25 GM 2.25 GM in DEXTROSE 5%-WATER - 50 ML IVPB SCH (18:00)
[2021-02-20] MEDS ORDERED: DEXTROSE 5%-WATER - 50 ML IVPB ONE ×2 (18:00→19:51)
[2021-02-20] MEDS ORDERED: PIPERACILLIN/TAZOBACTAM 2.25 GM VIAL IVPB ONE ×2 (18:00→19:51)
[2021-02-20] MEDS: PIPERACILLIN/TAZOB 2.25 GM 2.25 GM in DEXTROSE 5%-WATER - 50 ML IVPB SCH (18:02)
[2021-02-20] MEDS: DEXMEDETOMIDINE IN 0.9 % NACL 400 MCG/100 ML VIAL IVPB SCH (19:15)
[2021-02-20] MEDS ORDERED: SODIUM CHLORIDE 0.9% 500 ML INFUS.BAG IV ONE ×3 (19:52→23:29)
[2021-02-20] MEDS ORDERED: LACTATED RINGERS SOLUTION 1000 ML INFUS.BAG IV ONE (19:52)
[2021-02-20] MEDS ORDERED: LORazepam 2 MG/ML SDV VIAL IVPUSH ONE ×2 (21:29→22:31)
[2021-02-20] MEDS: MUPIROCIN 2% TOPICAL OINTMENT FOR DECOLONIZATION NS SCH (21:39)
[2021-02-20] MEDS: CHLORHEXIDINE GLUCONATE 4% CLEANSER FOR DECOLONIZATION TP SCH (21:39)
[2021-02-20] MEDS ORDERED: HEPARIN NA (PORCINE) 5,000 UNITS/ML 1ML VIAL SQ SCH (22:00)
[2021-02-20] MEDS ORDERED: PHENYLEPHRINE HCL 10 MG/1 ML SINGLE DOSE VIAL ONE ×2 (23:51→23:56)
[2021-02-21] MEDS ORDERED: DEXTROSE 5%-WATER - 50 ML IVPB ONE ×2 (00:49→08:56)
[2021-02-21] MEDS ORDERED: PIPERACILLIN/TAZOBACTAM 2.25 GM VIAL IVPB ONE ×2 (00:49→08:56)
[2021-02-21] MEDS: DEXTROSE 5%-WATER - 950 ML with SODIUM BICARBONATE 8.4% - 150 MEQ IV SCH ×3 (01:00→22:01)
[2021-02-21 01:01] LABS: BLOOD UREA NITROGEN 90.7 mg/dL (7-18)
[2021-02-21] MEDS: PIPERACILLIN/TAZOB 2.25 GM 2.25 GM in DEXTROSE 5%-WATER - 50 ML IVPB SCH ×2 (01:09→09:20)
[2021-02-21] MEDS: PHENYLEPHRINE NS PREMIX 50,000 MCG/500 ML BAG CVP SCH ×3 (01:10→22:02)
[2021-02-21 01:13] LABS: LACTIC ACID 6.6 mmol/L (0.4-2.0)
[2021-02-21] MEDS: NOREPINEPHRINE NS PREMIX 16,000 MCG/500 ML BAG IVPB SCH ×3 (02:00→19:00)
[2021-02-21 03:41] LABS: ARTERIAL BLD GAS O2 SATURATION 98.1 % (95-98); ARTERIAL BLOOD GAS BASE EXCESS -7.2 mmol/L (-2-2); ARTERIAL BLOOD GAS PO2 118.4 mmHg (80-100); ARTERIAL BLOOD GAS pH 7.338 (7.350-7.450)
[2021-02-21 03:42] LABS: ALLENS TEST POSITIVE
[2021-02-21 03:43] LABS: VENT MODE A/C; VENT RATE 16
[2021-02-21] MEDS ORDERED: methylPREDNISolone NA SUCC 125 MG/2 ML VIAL ONE (04:02)
[2021-02-21] MEDS: HYDROCORTISONE SOD SUCCINATE 100 MG/2 ML VIAL IVPB SCH ×4 (04:10→23:19)
[2021-02-21] MEDS: LEVOTHYROXINE NA 100 MCG TABLET (FP) PEG SCH ×2 (06:45→09:21)
[2021-02-21 07:54] LABS: HEMATOCRIT 22.8 % (35.4-49); HEMOGLOBIN 7.4 GM/dL (11.7-16.9); MCH 34.5 pg (25.7-33.7); MCHC 32.2 g/dl (32.0-35.9); MEAN CELL VOLUME 107.2 fl (80-96); MEAN PLT VOLUME 7.7 fl (7.5-11.1); PLATELET COUNT 184 10^3/uL (134-434); RBC 2.13 M/mm3 (4.00-5.60); RDW 17.6 % (11.9-15.9); WHITE BLOOD COUNT 20.2 K/mm3 (4.0-10.0)
[2021-02-21 07:58] LABS: INR 1.4 (0.83-1.09)
[2021-02-21 08:01] LABS: ACTIVATED PTT 33.3 SECONDS (25.2-36.5)
[2021-02-21 08:12] LABS: CHLORIDE 103 mmol/L (98-107); SODIUM 139 mmol/L (136-145)
[2021-02-21 08:19] LABS: ALBUMIN 1.8 g/dl (3.4-5.0)
[2021-02-21 08:20] LABS: BILIRUBIN,TOTAL 0.4 mg/dL (0.2-1); SGOT/AST 360 U/L (15-37); SGPT/ALT 242 U/L (13-61)
[2021-02-21 08:21] LABS: TOT PROT 4.8 g/dl (6.4-8.2)
[2021-02-21 08:22] LABS: CREATININE 2.9 mg/dL (0.55-1.3)
[2021-02-21 08:23] LABS: GLUCOSE,RANDOM 102 mg/dL (74-106); MAGNESIUM 2.5 mg/dL (1.8-2.4); PHOSPHOROUS 6.1 mg/dL (2.5-4.9)
[2021-02-21 08:24] LABS: ANION GAP 15 MMOL/L (8-16); CO2 21 mmol/L (21-32)
[2021-02-21 08:25] LABS: ALK PHOS 123 U/L (45-117); CALCIUM 6.9 mg/dL (8.5-10.1)
[2021-02-21] MEDS: MUPIROCIN 2% TOPICAL OINTMENT FOR DECOLONIZATION NS SCH ×2 (09:18→22:03)
[2021-02-21] MEDS: FLUDROCORTISONE ACETATE 0.1 MG TABLET (FP) PO SCH (09:19)
[2021-02-21] MEDS: PANTOPRAZOLE SODIUM 40 MG VIAL IVPUSH SCH (09:20)
[2021-02-21] MEDS: FOLIC ACID 1 MG TABLET (FP) PEG SCH (09:20)
[2021-02-21] MEDS: THIAMINE HCL 100 MG TABLET (FP) NGT SCH (09:20)
[2021-02-21] MEDS: CLOPIDOGREL BISULFATE 75 MG TABLET (FP) PEG SCH (09:20)
[2021-02-21] MEDS ORDERED: VANCOMYCIN 1 GM in D5W (PRE-DOCKED) 1,000 MG/250 ML IVPB SCH (10:00)
[2021-02-21] MEDS: DEXMEDETOMIDINE IN 0.9 % NACL 400 MCG/100 ML VIAL IVPB SCH ×2 (10:22→22:03)
[2021-02-21 10:58] LABS: ANISOCYTOSIS 2+; MACROCYTOSIS 0; PLATELET ESTIMATE NORMAL; TEAR DROP CELLS 1+
[2021-02-21 11:10] LABS: LACTIC ACID 7.4 mmol/L (0.4-2.0)
[2021-02-21] MEDS: MEROPENEM 1 GM in DEXTROSE 5%-WATER 100 ML IVPB SCH ×2 (12:50→23:19)
[2021-02-21] MEDS ORDERED: MEROPENEM 1 GM VIAL (RESTRICTED TO ID) IVPB ONE ×2 (12:54→22:04)
[2021-02-21] MEDS ORDERED: DEXTROSE 5%-WATER 100 ML IVPB ONE ×2 (12:54→22:05)
[2021-02-21] MEDS: VASOPRESSIN 40 UNITS/100 ML BAG IV SCH ×2 (13:15→22:01)
[2021-02-21 15:36] LABS: LACTIC ACID 22.4 mmol/L (0.4-2.0)
[2021-02-21] MEDS ORDERED: PHENYLEPHRINE HCL 10 MG/1 ML SINGLE DOSE VIAL ONE (16:44)
[2021-02-21 17:55] LABS: ARTERIAL BLD GAS O2 SATURATION 96.4 % (95-98); ARTERIAL BLOOD GAS BASE EXCESS 0 mmol/L (-2-2); ARTERIAL BLOOD GAS PO2 85.3 mmHg (80-100); ARTERIAL BLOOD GAS pH 7.395 (7.350-7.450)
[2021-02-21 17:57] LABS: ALLENS TEST POSITIVE; PT'S TEMP 98.3; VENT MODE A/C; VENT RATE 16
[2021-02-21] MEDS ORDERED: DEXTROSE 50%-WATER - 25 GM/50 ML VIAL IVPUSH ONE (19:54)
[2021-02-21] MEDS ORDERED: DEXTROSE 50%-WATER 25 GM/50 ML DISP.SYRIN ONE (19:56)
[2021-02-21 21:06] LABS: HEMATOCRIT 22.6 % (35.4-49); HEMOGLOBIN 7.5 GM/dL (11.7-16.9); MCH 34.4 pg (25.7-33.7); MEAN CELL VOLUME 104.2 fl (80-96); MEAN PLT VOLUME 7.7 fl (7.5-11.1); PLATELET COUNT 118 10^3/uL (134-434); RBC 2.17 M/mm3 (4.00-5.60); RDW 17.5 % (11.9-15.9); WHITE BLOOD COUNT 11.5 K/mm3 (4.0-10.0)
[2021-02-21 21:53] LABS: LACTIC ACID 6.1 mmol/L (0.4-2.0)
[2021-02-21] MEDS: CHLORHEXIDINE GLUCONATE 4% CLEANSER FOR DECOLONIZATION TP SCH (22:03)
[2021-02-21 22:37] LABS: ANISOCYTOSIS 0; MACROCYTOSIS 1+; PLATELET ESTIMATE DECREASED
[2021-02-22] MEDS: NOREPINEPHRINE NS PREMIX 16,000 MCG/500 ML BAG IVPB SCH ×2 (02:08→14:00)
[2021-02-22] MEDS: PHENYLEPHRINE NS PREMIX 50,000 MCG/500 ML BAG CVP SCH ×2 (02:08→17:58)
[2021-02-22] MEDS: HYDROCORTISONE SOD SUCCINATE 100 MG/2 ML VIAL IVPB SCH ×4 (02:09→22:53)
[2021-02-22] MEDS: LEVOTHYROXINE NA 100 MCG TABLET (FP) PEG SCH (06:31)
[2021-02-22 07:14] LABS: HEMATOCRIT 24.8 % (35.4-49); HEMOGLOBIN 8.3 GM/dL (11.7-16.9); MCH 35.1 pg (25.7-33.7); MCHC 33.5 g/dl (32.0-35.9); MEAN CELL VOLUME 104.7 fl (80-96); MEAN PLT VOLUME 9.4 fl (7.5-11.1); PLATELET COUNT 101 10^3/uL (134-434); RBC 2.37 M/mm3 (4.00-5.60); RDW 17.4 % (11.9-15.9); WHITE BLOOD COUNT 13.8 K/mm3 (4.0-10.0)
[2021-02-22 07:31] LABS: CHLORIDE 104 mmol/L (98-107); SODIUM 143 mmol/L (136-145)
[2021-02-22 07:34] LABS: ANION GAP 10 MMOL/L (8-16); BLOOD UREA NITROGEN 77.9 mg/dL (7-18); CO2 29 mmol/L (21-32); GLUCOSE,RANDOM 83 mg/dL (74-106); MAGNESIUM 2.5 mg/dL (1.8-2.4)
[2021-02-22 07:37] LABS: CREATININE 2.3 mg/dL (0.55-1.3); SGOT/AST 792 U/L (15-37); SGPT/ALT 306 U/L (13-61)
[2021-02-22 07:39] LABS: BILIRUBIN,TOTAL 0.4 mg/dL (0.2-1); TOT PROT 4.3 g/dl (6.4-8.2)
[2021-02-22 07:51] LABS: ALBUMIN 1.3 g/dl (3.4-5.0); ALK PHOS 304 U/L (45-117); CALCIUM 6.1 mg/dL (8.5-10.1); LACTIC ACID 5.5 mmol/L (0.4-2.0)
[2021-02-22] MEDS ORDERED: MEROPENEM 1 GM VIAL (RESTRICTED TO ID) IVPB ONE ×2 (09:04→22:48)
[2021-02-22] MEDS ORDERED: DEXTROSE 5%-WATER 100 ML IVPB ONE ×2 (09:04→22:49)
[2021-02-22] MEDS ORDERED: CALCIUM GLUCONATE 10% - 1,000 MG/10 ML VIAL IVPUSH ONE (09:06)
[2021-02-22] MEDS: CLOPIDOGREL BISULFATE 75 MG TABLET (FP) PEG SCH (09:32)
[2021-02-22] MEDS: FLUDROCORTISONE ACETATE 0.1 MG TABLET (FP) PO SCH (09:32)
[2021-02-22] MEDS: PANTOPRAZOLE SODIUM 40 MG VIAL IVPUSH SCH (09:32)
[2021-02-22] MEDS: FOLIC ACID 1 MG TABLET (FP) PEG SCH (09:32)
[2021-02-22] MEDS: THIAMINE HCL 100 MG TABLET (FP) NGT SCH (09:32)
[2021-02-22] MEDS: MUPIROCIN 2% TOPICAL OINTMENT FOR DECOLONIZATION NS SCH ×2 (09:33→22:55)
[2021-02-22] MEDS ORDERED: PT OWN MED DRAWER 7, Y5N ONE ×2 (10:44→12:11)
[2021-02-22] MEDS: DEXMEDETOMIDINE IN 0.9 % NACL 400 MCG/100 ML VIAL IVPB SCH ×3 (12:15→22:54)
[2021-02-22] MEDS: MEROPENEM 1 GM in DEXTROSE 5%-WATER 100 ML IVPB SCH ×2 (12:15→22:54)
[2021-02-22 12:50] LABS: ANISOCYTOSIS 1+; MACROCYTOSIS 1+
[2021-02-22] MEDS: LACTATED RINGERS SOLUTION 1,000 ML/1,000 ML INFUS.BAG IV SCH (13:04)
[2021-02-22] MEDS: VASOPRESSIN 40 UNITS/100 ML BAG IV SCH (17:56)
[2021-02-22 19:50] LABS: LACTIC ACID 3.9 mmol/L (0.4-2.0)
[2021-02-22] MEDS: ALBUTEROL SO4 2.5/IPRATROPIUM 0.5 INH SOL 3 ML VIAL.NEB. NEB PRN (20:30)
[2021-02-22] MEDS: CHLORHEXIDINE GLUCONATE 4% CLEANSER FOR DECOLONIZATION TP SCH (22:54)
[2021-02-23] MEDS: PHENYLEPHRINE NS PREMIX 50,000 MCG/500 ML BAG CVP SCH (00:38)
[2021-02-23] MEDS: HYDROCORTISONE SOD SUCCINATE 100 MG/2 ML VIAL IVPB SCH ×4 (02:33→21:37)
[2021-02-23] MEDS: NOREPINEPHRINE NS PREMIX 16,000 MCG/500 ML BAG IVPB SCH (05:42)
[2021-02-23] MEDS ORDERED: PT OWN MED DRAWER 7, Y5N ONE ×3 (06:15→06:36)
[2021-02-23] MEDS: LEVOTHYROXINE NA 100 MCG TABLET (FP) PEG SCH (06:39)
[2021-02-23 07:48] LABS: CHLORIDE 106 mmol/L (98-107); SODIUM 144 mmol/L (136-145)
[2021-02-23 07:54] LABS: ANION GAP 10 MMOL/L (8-16); BLOOD UREA NITROGEN 86.5 mg/dL (7-18); CO2 28 mmol/L (21-32); GLUCOSE,RANDOM 101 mg/dL (74-106); HEMATOCRIT 25.3 % (35.4-49); HEMOGLOBIN 8.4 GM/dL (11.7-16.9); MAGNESIUM 2.8 mg/dL (1.8-2.4); MCH 34.6 pg (25.7-33.7); MCHC 33.3 g/dl (32.0-35.9); MEAN PLT VOLUME 9.9 fl (7.5-11.1); PLATELET COUNT 55 10^3/uL (134-434); RBC 2.43 M/mm3 (4.00-5.60); RDW 17.7 % (11.9-15.9); WHITE BLOOD COUNT 9.3 K/mm3 (4.0-10.0)
[2021-02-23 07:57] LABS: PHOSPHOROUS 8.5 mg/dL (2.5-4.9); SGOT/AST 814 U/L (15-37); SGPT/ALT 339 U/L (13-61)
[2021-02-23 07:58] LABS: BILIRUBIN,TOTAL 0.5 mg/dL (0.2-1)
[2021-02-23 08:19] LABS: ALK PHOS 352 U/L (45-117); CALCIUM 6.1 mg/dL (8.5-10.1)
[2021-02-23] MEDS ORDERED: DEXTROSE 5%-WATER 100 ML IVPB ONE (08:24)
[2021-02-23] MEDS ORDERED: MEROPENEM 1 GM VIAL (RESTRICTED TO ID) IVPB ONE (08:24)
[2021-02-23 09:40] LABS: ANISOCYTOSIS 1+; MACROCYTOSIS 1+; PLATELET ESTIMATE DECREASED; TOXIC GRANULATION 1+
[2021-02-23] MEDS: PANTOPRAZOLE SODIUM 40 MG VIAL IVPUSH SCH (09:40)
[2021-02-23] MEDS: THIAMINE HCL 100 MG TABLET (FP) NGT SCH (09:41)
[2021-02-23] MEDS: FLUDROCORTISONE ACETATE 0.1 MG TABLET (FP) PO SCH (09:41)
[2021-02-23] MEDS: MUPIROCIN 2% TOPICAL OINTMENT FOR DECOLONIZATION NS SCH ×2 (09:41→21:42)
[2021-02-23] MEDS: FOLIC ACID 1 MG TABLET (FP) PEG SCH (09:41)
[2021-02-23] MEDS: CLOPIDOGREL BISULFATE 75 MG TABLET (FP) PEG SCH (09:41)
[2021-02-23] MEDS ORDERED: PROPOFOL 1,000,000 MCG/100 ML VIAL ONE (10:58)
[2021-02-23] MEDS: PROPOFOL 1,000,000 MCG/100 ML VIAL IVPB SCH (12:00)
[2021-02-23] MEDS: MEROPENEM 1 GM in DEXTROSE 5%-WATER 100 ML IVPB SCH (12:01)
[2021-02-23] MEDS ORDERED: DEXTROSE 50%-WATER 25 GM/50 ML DISP.SYRIN ONE (12:37)
[2021-02-23] MEDS ORDERED: DEXTROSE 50%-WATER - 25 GM/50 ML VIAL IVPUSH ONE (13:00)
[2021-02-23] MEDS: SEVELAMER CARBONATE 0.8 GM POWDER PACKET PO SCH ×2 (13:00→17:30)
[2021-02-23] MEDS: LACTATED RINGERS SOLUTION 1,000 ML/1,000 ML INFUS.BAG IV SCH (13:20)
[2021-02-23] MEDS: VASOPRESSIN 40 UNITS/100 ML BAG IV SCH ×2 (13:22→20:30)
[2021-02-23] MEDS: DEXMEDETOMIDINE IN 0.9 % NACL 400 MCG/100 ML VIAL IVPB SCH ×2 (14:21→22:50)
[2021-02-23 16:04] LABS: INR 0.86 (0.83-1.09); PROTHROMBIN TIME (PATIENT) 10.4 SEC (9.7-13.0)
[2021-02-23 16:07] LABS: ACTIVATED PTT 29.8 SECONDS (25.2-36.5)
[2021-02-23] MEDS: BACITRACIN 15 GM TUBE TOPICAL OINTMENT TP SCH (21:42)
[2021-02-23] MEDS: CHLORHEXIDINE GLUCONATE 4% CLEANSER FOR DECOLONIZATION TP SCH (21:45)
[2021-02-24] MEDS ORDERED: MEROPENEM 1 GM VIAL (RESTRICTED TO ID) IVPB ONE ×3 (00:05→23:05)
[2021-02-24] MEDS ORDERED: DEXTROSE 5%-WATER 100 ML IVPB ONE ×3 (00:05→23:05)
[2021-02-24] MEDS: PHENYLEPHRINE NS PREMIX 50,000 MCG/500 ML BAG CVP SCH (00:15)
[2021-02-24] MEDS: MEROPENEM 1 GM in DEXTROSE 5%-WATER 100 ML IVPB SCH ×3 (00:18→23:08)
[2021-02-24] MEDS: NOREPINEPHRINE NS PREMIX 16,000 MCG/500 ML BAG IVPB SCH (02:00)
[2021-02-24] MEDS: HYDROCORTISONE SOD SUCCINATE 100 MG/2 ML VIAL IVPB SCH ×4 (03:10→21:44)
[2021-02-24 06:36] LABS: HEMATOCRIT 22.5 % (35.4-49); HEMOGLOBIN 7.6 GM/dL (11.7-16.9); MCH 34.9 pg (25.7-33.7); MCHC 33.7 g/dl (32.0-35.9); MEAN CELL VOLUME 103.6 fl (80-96); MEAN PLT VOLUME 9.4 fl (7.5-11.1); PLATELET COUNT 41 10^3/uL (134-434); RBC 2.17 M/mm3 (4.00-5.60); RDW 17.3 % (11.9-15.9); WHITE BLOOD COUNT 6.3 K/mm3 (4.0-10.0)
[2021-02-24] MEDS: LEVOTHYROXINE NA 100 MCG TABLET (FP) PEG SCH (06:37)
[2021-02-24 06:53] LABS: CHLORIDE 108 mmol/L (98-107); SODIUM 144 mmol/L (136-145)
[2021-02-24 07:08] LABS: ALBUMIN 0.9 g/dl (3.4-5.0); ANION GAP 8 MMOL/L (8-16); BILIRUBIN,TOTAL 0.5 mg/dL (0.2-1); BLOOD UREA NITROGEN 87.3 mg/dL (7-18); CO2 28 mmol/L (21-32); GLUCOSE,RANDOM 114 mg/dL (74-106); PHOSPHOROUS 6.3 mg/dL (2.5-4.9); SGPT/ALT 324 U/L (13-61)
[2021-02-24 07:10] LABS: MAGNESIUM 2.9 mg/dL (1.8-2.4)
[2021-02-24 07:11] LABS: CREATININE 1.7 mg/dL (0.55-1.3)
[2021-02-24 07:12] LABS: SGOT/AST 853 U/L (15-37)
[2021-02-24 07:13] LABS: ALK PHOS 387 U/L (45-117); CALCIUM 5.7 mg/dL (8.5-10.1)
[2021-02-24] MEDS: LACTATED RINGERS SOLUTION 1,000 ML/1,000 ML INFUS.BAG IV SCH ×2 (07:25→16:58)
[2021-02-24] MEDS ORDERED: PT OWN MED DRAWER 7, Y5N ONE (07:42)
[2021-02-24] MEDS: DEXMEDETOMIDINE IN 0.9 % NACL 400 MCG/100 ML VIAL IVPB SCH (07:45)
[2021-02-24] MEDS: PROPOFOL 1,000,000 MCG/100 ML VIAL IVPB SCH ×2 (08:00→17:00)
[2021-02-24] MEDS: SEVELAMER CARBONATE 0.8 GM POWDER PACKET PO SCH (08:47)
[2021-02-24] MEDS: PANTOPRAZOLE SODIUM 40 MG VIAL IVPUSH SCH (09:12)
[2021-02-24] MEDS: FLUDROCORTISONE ACETATE 0.1 MG TABLET (FP) PO SCH (09:12)
[2021-02-24] MEDS: FOLIC ACID 1 MG TABLET (FP) PEG SCH (09:12)
[2021-02-24] MEDS: CLOPIDOGREL BISULFATE 75 MG TABLET (FP) PEG SCH (09:15)
[2021-02-24] MEDS: THIAMINE HCL 100 MG TABLET (FP) NGT SCH (09:15)
[2021-02-24] MEDS: BACITRACIN 15 GM TUBE TOPICAL OINTMENT TP SCH ×2 (09:17→22:00)
[2021-02-24] MEDS: MUPIROCIN 2% TOPICAL OINTMENT FOR DECOLONIZATION NS SCH ×2 (09:18→22:00)
[2021-02-24 09:27] LABS: ANISOCYTOSIS 0; MACROCYTOSIS 0; PLATELET ESTIMATE DECREASED
[2021-02-24] MEDS ORDERED: ACETAMINOPHEN 1000 MG/100 ML VIAL (NON FORMULARY) IVPB ONE (11:57)
[2021-02-24] MEDS: CALCIUM ACETATE 667 MG CAPSULE (FP) PO SCH ×2 (12:51→17:18)
[2021-02-24] MEDS: FENTANYL IVPB 500 MCG/100 ML BAG IVPB SCH (12:52)
[2021-02-24] MEDS: VASOPRESSIN 40 UNITS/100 ML BAG IV SCH (17:12)
[2021-02-24] MEDS: FUROSEMIDE 40 MG/4 ML INJECTABLE VIAL IVPUSH SCH (17:18)
[2021-02-24] MEDS: CHLORHEXIDINE GLUCONATE 4% CLEANSER FOR DECOLONIZATION TP SCH (22:00)
[2021-02-25] MEDS: NOREPINEPHRINE NS PREMIX 16,000 MCG/500 ML BAG IVPB SCH (02:00)
[2021-02-25] MEDS: HYDROCORTISONE SOD SUCCINATE 100 MG/2 ML VIAL IVPB SCH ×4 (03:06→21:30)
[2021-02-25] MEDS ORDERED: PT OWN MED DRAWER 7, Y5N ONE ×3 (06:43→13:09)
[2021-02-25] MEDS: LACTATED RINGERS SOLUTION 1,000 ML/1,000 ML INFUS.BAG IV SCH ×2 (06:45→18:47)
[2021-02-25] MEDS: LEVOTHYROXINE NA 100 MCG TABLET (FP) PEG SCH (06:56)
[2021-02-25] MEDS ORDERED: ACETAMINOPHEN 1000 MG/100 ML VIAL (NON FORMULARY) IVPB ONE (07:29)
[2021-02-25 07:42] LABS: HEMATOCRIT 21.6 % (35.4-49); HEMOGLOBIN 7.4 GM/dL (11.7-16.9); MCH 35.4 pg (25.7-33.7); MCHC 34.2 g/dl (32.0-35.9); MEAN CELL VOLUME 103.7 fl (80-96); PLATELET COUNT 44 10^3/uL (134-434); RBC 2.08 M/mm3 (4.00-5.60); RDW 17.5 % (11.9-15.9); WHITE BLOOD COUNT 6.1 K/mm3 (4.0-10.0)
[2021-02-25 07:52] LABS: INR 0.81 (0.83-1.09); PROTHROMBIN TIME (PATIENT) 9.9 SEC (9.7-13.0)
[2021-02-25 07:55] LABS: ACTIVATED PTT 28.3 SECONDS (25.2-36.5)
[2021-02-25 08:02] LABS: CHLORIDE 109 mmol/L (98-107); SODIUM 145 mmol/L (136-145)
[2021-02-25 08:06] LABS: ANION GAP 7 MMOL/L (8-16); BLOOD UREA NITROGEN 86.8 mg/dL (7-18); CO2 29 mmol/L (21-32); GLUCOSE,RANDOM 137 mg/dL (74-106); MAGNESIUM 3.2 mg/dL (1.8-2.4)
[2021-02-25 08:09] LABS: CREATININE 1.6 mg/dL (0.55-1.3); PHOSPHOROUS 5.2 mg/dL (2.5-4.9); SGOT/AST 751 U/L (15-37)
[2021-02-25 08:10] LABS: BILIRUBIN,TOTAL 0.6 mg/dL (0.2-1)
[2021-02-25 08:11] LABS: TOT PROT 4.3 g/dl (6.4-8.2)
[2021-02-25 08:12] LABS: ALK PHOS 362 U/L (45-117)
[2021-02-25] MEDS: AMINO ACIDS/PROTEIN HYDROLYS 30 ML LIQUID.PKT PO SCH (08:25)
[2021-02-25] MEDS: CALCIUM ACETATE 667 MG CAPSULE (FP) PO SCH ×3 (08:25→17:07)
[2021-02-25] MEDS: FENTANYL IVPB 500 MCG/100 ML BAG IVPB SCH (08:25)
[2021-02-25 08:35] LABS: CALCIUM 5.9 mg/dL (8.5-10.1); SGPT/ALT 275 U/L (13-61)
[2021-02-25] MEDS ORDERED: METOPROLOL TARTRATE 5 MG/5 ML VIAL ONE (09:03)
[2021-02-25 09:20] LABS: ANISOCYTOSIS 1+; MACROCYTOSIS 0; PLATELET ESTIMATE DECREASED
[2021-02-25] MEDS ORDERED: METOPROLOL TARTRATE 5 MG/5 ML VIAL IVPUSH ONE ×2 (09:30→16:01)
[2021-02-25] MEDS: PANTOPRAZOLE SODIUM 40 MG VIAL IVPUSH SCH (09:35)
[2021-02-25] MEDS: CLOPIDOGREL BISULFATE 75 MG TABLET (FP) PEG SCH (09:35)
[2021-02-25] MEDS: FOLIC ACID 1 MG TABLET (FP) PEG SCH (09:35)
[2021-02-25] MEDS: FUROSEMIDE 40 MG/4 ML INJECTABLE VIAL IVPUSH SCH (09:35)
[2021-02-25] MEDS: BACITRACIN 15 GM TUBE TOPICAL OINTMENT TP SCH ×2 (09:36→21:30)
[2021-02-25] MEDS: THIAMINE HCL 100 MG TABLET (FP) NGT SCH (09:36)
[2021-02-25] MEDS: FLUDROCORTISONE ACETATE 0.1 MG TABLET (FP) PO SCH (09:36)
[2021-02-25] MEDS: MUPIROCIN 2% TOPICAL OINTMENT FOR DECOLONIZATION NS SCH (09:36)
[2021-02-25] MEDS ORDERED: MEROPENEM 1 GM VIAL (RESTRICTED TO ID) IVPB ONE ×2 (11:05→17:04)
[2021-02-25] MEDS ORDERED: DEXTROSE 5%-WATER 100 ML IVPB ONE ×2 (11:05→17:04)
[2021-02-25] MEDS: MEROPENEM 1 GM in DEXTROSE 5%-WATER 100 ML IVPB SCH ×2 (11:09→17:07)
[2021-02-25] MEDS: FENTANYL NS IVPB 500 MCG/100 ML BAG IVPB SCH ×2 (11:09→19:00)
[2021-02-25] MEDS: PROPOFOL 1,000,000 MCG/100 ML VIAL IVPB SCH (13:53)
[2021-02-25] MEDS: VANCOMYCIN/WATER BAGS 1,250 MG/250 ML BAG IVPB SCH (13:54)
[2021-02-25] MEDS ORDERED: CALCIUM GLUCONATE 10% - 1,000 MG/10 ML VIAL IVPUSH ONE (14:00)
[2021-02-25] MEDS ORDERED: METOPROLOL TARTRATE 5 MG/5 ML VIAL IVPUSH PRN (16:01)
[2021-02-25] MEDS ORDERED: DEXTROSE 50%-WATER - 25 GM/50 ML VIAL IVPUSH ONE (18:21)
[2021-02-25] MEDS: VASOPRESSIN 40 UNITS/100 ML BAG IV SCH (18:47)
[2021-02-25] MEDS: CHLORHEXIDINE GLUCONATE 4% CLEANSER FOR DECOLONIZATION TP SCH (21:30)
[2021-02-26] MEDS ORDERED: MEROPENEM 1 GM VIAL (RESTRICTED TO ID) IVPB ONE ×3 (01:03→17:54)
[2021-02-26] MEDS ORDERED: DEXTROSE 5%-WATER 100 ML IVPB ONE ×3 (01:03→17:54)
[2021-02-26] MEDS: MEROPENEM 1 GM in DEXTROSE 5%-WATER 100 ML IVPB SCH ×3 (02:15→18:08)
[2021-02-26] MEDS: HYDROCORTISONE SOD SUCCINATE 100 MG/2 ML VIAL IVPB SCH ×4 (02:16→20:59)
[2021-02-26] MEDS: NOREPINEPHRINE NS PREMIX 16,000 MCG/500 ML BAG IVPB SCH (02:53)
[2021-02-26] MEDS: LACTATED RINGERS SOLUTION 1,000 ML/1,000 ML INFUS.BAG IV SCH ×2 (02:55→16:23)
[2021-02-26] MEDS: PROPOFOL 1,000,000 MCG/100 ML VIAL IVPB SCH ×2 (02:56→13:50)
[2021-02-26] MEDS: FENTANYL NS IVPB 500 MCG/100 ML BAG IVPB SCH ×3 (02:59→16:23)
[2021-02-26] MEDS ORDERED: PT OWN MED DRAWER 7, Y5N ONE ×3 (06:16→14:56)
[2021-02-26 06:25] LABS: HEMATOCRIT 21.7 % (35.4-49); HEMOGLOBIN 7.2 GM/dL (11.7-16.9); MCH 34.8 pg (25.7-33.7); MCHC 33.1 g/dl (32.0-35.9); MEAN CELL VOLUME 105.1 fl (80-96); MEAN PLT VOLUME 12.4 fl (7.5-11.1); PLATELET COUNT 53 10^3/uL (134-434); RBC 2.07 M/mm3 (4.00-5.60); RDW 17.4 % (11.9-15.9)
[2021-02-26] MEDS: LEVOTHYROXINE NA 100 MCG TABLET (FP) PEG SCH (06:38)
[2021-02-26 06:39] LABS: CHLORIDE 106 mmol/L (98-107); SODIUM 143 mmol/L (136-145)
[2021-02-26 06:46] LABS: ALBUMIN 0.9 g/dl (3.4-5.0)
[2021-02-26 06:47] LABS: ANION GAP 9 MMOL/L (8-16); BLOOD UREA NITROGEN 96.7 mg/dL (7-18); CO2 28 mmol/L (21-32); SGOT/AST 566 U/L (15-37); SGPT/ALT 205 U/L (13-61)
[2021-02-26 06:48] LABS: BILIRUBIN,TOTAL 0.4 mg/dL (0.2-1); GLUCOSE,RANDOM 122 mg/dL (74-106); MAGNESIUM 3.1 mg/dL (1.8-2.4); TOT PROT 4.2 g/dl (6.4-8.2)
[2021-02-26 06:50] LABS: CREATININE 1.9 mg/dL (0.55-1.3); PHOSPHOROUS 5.2 mg/dL (2.5-4.9)
[2021-02-26 06:52] LABS: ALK PHOS 288 U/L (45-117); CALCIUM 6.5 mg/dL (8.5-10.1)
[2021-02-26 07:13] LABS: WHITE BLOOD COUNT 6.2 K/mm3 (4.0-10.0)
[2021-02-26] MEDS: CALCIUM ACETATE 667 MG CAPSULE (FP) PO SCH ×3 (07:57→16:38)
[2021-02-26] MEDS: AMINO ACIDS/PROTEIN HYDROLYS 30 ML LIQUID.PKT PO SCH (07:58)
[2021-02-26] MEDS: THIAMINE HCL 100 MG TABLET (FP) NGT SCH (09:54)
[2021-02-26] MEDS: FLUDROCORTISONE ACETATE 0.1 MG TABLET (FP) PO SCH (09:54)
[2021-02-26] MEDS: CLOPIDOGREL BISULFATE 75 MG TABLET (FP) PEG SCH (09:54)
[2021-02-26] MEDS: FOLIC ACID 1 MG TABLET (FP) PEG SCH (09:55)
[2021-02-26] MEDS: BACITRACIN 15 GM TUBE TOPICAL OINTMENT TP SCH ×2 (09:55→20:59)
[2021-02-26] MEDS: PANTOPRAZOLE SODIUM 40 MG VIAL IVPUSH SCH (09:55)
[2021-02-26 11:15] LABS: ANISOCYTOSIS 2+; MACROCYTOSIS 2+; PLATELET ESTIMATE DECREASED
[2021-02-26] MEDS ORDERED: DAPTOMYCIN 350 MG in SODIUM CHLORIDE 50 ML IVPB STA (13:12)
[2021-02-26] MEDS: VANCOMYCIN/WATER BAGS 1,250 MG/250 ML BAG IVPB SCH (13:52)
[2021-02-26] MEDS ORDERED: CASPOFUNGIN ACETATE 70 MG in SODIUM CHLORIDE 250 ML IVPB ONE (15:03)
[2021-02-26] MEDS: VASOPRESSIN 40 UNITS/100 ML BAG IV SCH (18:07)
[2021-02-26] MEDS ORDERED: SODIUM CHLORIDE 0.9% 500 ML INFUS.BAG IV ONE (20:47)
[2021-02-26] MEDS: CHLORHEXIDINE GLUCONATE 4% CLEANSER FOR DECOLONIZATION TP SCH (20:59)
[2021-02-26] MEDS ORDERED: SODIUM CHLORIDE 500 ML IV STA (21:40)
[2021-02-27] MEDS ORDERED: MEROPENEM 1 GM VIAL (RESTRICTED TO ID) IVPB ONE ×3 (01:28→17:52)
[2021-02-27] MEDS ORDERED: DEXTROSE 5%-WATER 100 ML IVPB ONE ×3 (01:29→17:52)
[2021-02-27] MEDS: MEROPENEM 1 GM in DEXTROSE 5%-WATER 100 ML IVPB SCH ×3 (01:38→18:00)
[2021-02-27] MEDS: PROPOFOL 1,000,000 MCG/100 ML VIAL IVPB SCH ×3 (01:38→12:04)
[2021-02-27] MEDS: FENTANYL NS IVPB 500 MCG/100 ML BAG IVPB SCH ×4 (01:39→20:21)
[2021-02-27] MEDS: NOREPINEPHRINE NS PREMIX 16,000 MCG/500 ML BAG IVPB SCH ×2 (03:56→08:53)
[2021-02-27] MEDS: HYDROCORTISONE SOD SUCCINATE 100 MG/2 ML VIAL IVPB SCH ×4 (03:56→21:38)
[2021-02-27] MEDS: LACTATED RINGERS SOLUTION 1,000 ML/1,000 ML INFUS.BAG IV SCH ×3 (03:57→20:21)
[2021-02-27] MEDS ORDERED: PT OWN MED DRAWER 7, Y5N ONE ×2 (06:17→15:40)
[2021-02-27] MEDS: LEVOTHYROXINE NA 100 MCG TABLET (FP) PEG SCH (06:18)
[2021-02-27 06:49] LABS: HEMATOCRIT 18.5 % (35.4-49); MCHC 32.1 g/dl (32.0-35.9); MEAN CELL VOLUME 105.8 fl (80-96); MEAN PLT VOLUME 10.9 fl (7.5-11.1); PLATELET COUNT 77 10^3/uL (134-434); RBC 1.75 M/mm3 (4.00-5.60); RDW 17.2 % (11.9-15.9); WHITE BLOOD COUNT 14.2 K/mm3 (4.0-10.0)
[2021-02-27 06:54] LABS: CHLORIDE 105 mmol/L (98-107); SODIUM 140 mmol/L (136-145)
[2021-02-27 06:57] LABS: HEMOGLOBIN 5.9 GM/dL (11.7-16.9)
[2021-02-27 07:01] LABS: GLUCOSE,RANDOM 149 mg/dL (74-106); SGOT/AST 388 U/L (15-37); SGPT/ALT 145 U/L (13-61)
[2021-02-27 07:02] LABS: ALBUMIN 0.7 g/dl (3.4-5.0); ANION GAP 10 MMOL/L (8-16); CO2 25 mmol/L (21-32); MAGNESIUM 3.1 mg/dL (1.8-2.4)
[2021-02-27 07:04] LABS: ALK PHOS 280 U/L (45-117); BILIRUBIN,TOTAL 0.5 mg/dL (0.2-1); CREATININE 2.5 mg/dL (0.55-1.3); PHOSPHOROUS 7.6 mg/dL (2.5-4.9); TOT PROT 4.1 g/dl (6.4-8.2)
[2021-02-27 07:14] LABS: BLOOD UREA NITROGEN 111.2 mg/dL (7-18); CALCIUM 6.4 mg/dL (8.5-10.1)
[2021-02-27] MEDS: AMINO ACIDS/PROTEIN HYDROLYS 30 ML LIQUID.PKT PO SCH ×2 (08:52→19:18)
[2021-02-27] MEDS: CALCIUM ACETATE 667 MG CAPSULE (FP) PO SCH ×3 (08:52→17:30)
[2021-02-27 09:23] LABS: PLATELET ESTIMATE DECREASED
[2021-02-27] MEDS: FOLIC ACID 1 MG TABLET (FP) PEG SCH (09:43)
[2021-02-27] MEDS: FLUDROCORTISONE ACETATE 0.1 MG TABLET (FP) PO SCH (09:43)
[2021-02-27] MEDS: THIAMINE HCL 100 MG TABLET (FP) NGT SCH (09:45)
[2021-02-27] MEDS: PANTOPRAZOLE SODIUM 40 MG VIAL IVPUSH SCH (09:46)
[2021-02-27] MEDS: CLOPIDOGREL BISULFATE 75 MG TABLET (FP) PEG SCH (09:46)
[2021-02-27] MEDS: BACITRACIN 15 GM TUBE TOPICAL OINTMENT TP SCH ×2 (09:47→21:38)
[2021-02-27] MEDS: VASOPRESSIN 40 UNITS/100 ML BAG IV SCH ×2 (09:49→17:00)
[2021-02-27] MEDS ORDERED: DAPTOMYCIN 350 MG in SODIUM CHLORIDE 50 ML IVPB SCH (10:00)
[2021-02-27] MEDS ORDERED: ACETAMINOPHEN 1000 MG/100 ML VIAL (NON FORMULARY) IVPB ONE (10:12)
[2021-02-27] MEDS ORDERED: ACETAMINOPHEN INJECTION 100 ML IVPB ONE (10:16)
[2021-02-27] MEDS ORDERED: ALBUMIN HUMAN 25% 100 ML VIAL IVPB SCH (13:00)
[2021-02-27] MEDS ORDERED: FUROSEMIDE 40 MG/4 ML INJECTABLE VIAL IVPUSH ONE (14:00)
[2021-02-27] MEDS ORDERED: CASPOFUNGIN ACETATE 50 MG in SODIUM CHLORIDE 250 ML IVPB SCH (15:00)
[2021-02-27] MEDS: DAPTOMYCIN 550 MG in SODIUM CHLORIDE 50 ML IVPB SCH (15:42)
[2021-02-27] MEDS: CASPOFUNGIN ACETATE 50 MG in SODIUM CHLORIDE 250 ML IVPB SCH (15:43)
[2021-02-27 15:59] VITALS: BMI 32.1
[2021-02-27] MEDS: CHLORHEXIDINE GLUCONATE 4% CLEANSER FOR DECOLONIZATION TP SCH (21:38)
[2021-02-28] MEDS: NOREPINEPHRINE NS PREMIX 16,000 MCG/500 ML BAG IVPB SCH ×2 (00:30→03:10)
[2021-02-28] MEDS: PROPOFOL 1,000,000 MCG/100 ML VIAL IVPB SCH ×3 (00:30→20:52)
[2021-02-28] MEDS: VASOPRESSIN 40 UNITS/100 ML BAG IV SCH ×4 (00:30→20:59)
[2021-02-28] MEDS ORDERED: DEXTROSE 5%-WATER 100 ML IVPB ONE ×3 (00:34→16:15)
[2021-02-28] MEDS ORDERED: MEROPENEM 1 GM VIAL (RESTRICTED TO ID) IVPB ONE ×3 (00:34→16:15)
[2021-02-28] MEDS: MEROPENEM 1 GM in DEXTROSE 5%-WATER 100 ML IVPB SCH ×3 (01:07→17:37)
[2021-02-28] MEDS: FENTANYL NS IVPB 500 MCG/100 ML BAG IVPB SCH ×4 (01:07→16:51)
[2021-02-28] MEDS: HYDROCORTISONE SOD SUCCINATE 100 MG/2 ML VIAL IVPB SCH ×4 (03:11→20:58)
[2021-02-28] MEDS ORDERED: VASOPRESSIN 20 UNITS/ML VIAL IV ONE (07:20)
[2021-02-28 07:54] LABS: HEMATOCRIT 26.7 % (35.4-49); HEMOGLOBIN 9.2 GM/dL (11.7-16.9); MCH 32.5 pg (25.7-33.7); MCHC 34.5 g/dl (32.0-35.9); MEAN CELL VOLUME 94.1 fl (80-96); MEAN PLT VOLUME 10.3 fl (7.5-11.1); PLATELET COUNT 70 10^3/uL (134-434); RBC 2.84 M/mm3 (4.00-5.60); RDW 22.6 % (11.9-15.9)
[2021-02-28 07:58] LABS: CHLORIDE 103 mmol/L (98-107); SODIUM 137 mmol/L (136-145)
[2021-02-28 08:09] LABS: SGOT/AST 229 U/L (15-37); SGPT/ALT 88 U/L (13-61)
[2021-02-28 08:10] LABS: ANION GAP 12 MMOL/L (8-16); CO2 22 mmol/L (21-32); GLUCOSE,RANDOM 115 mg/dL (74-106); MAGNESIUM 3.1 mg/dL (1.8-2.4)
[2021-02-28 08:11] LABS: BILIRUBIN,TOTAL 0.6 mg/dL (0.2-1); TOT PROT 4.5 g/dl (6.4-8.2)
[2021-02-28 08:12] LABS: CREATININE 2.9 mg/dL (0.55-1.3)
[2021-02-28 08:13] LABS: PHOSPHOROUS 8.7 mg/dL (2.5-4.9)
[2021-02-28 08:23] LABS: ALK PHOS 230 U/L (45-117); BLOOD UREA NITROGEN 116.5 mg/dL (7-18); CALCIUM 6.7 mg/dL (8.5-10.1)
[2021-02-28] MEDS ORDERED: PT OWN MED DRAWER 7, Y5N ONE ×2 (09:03→12:55)
[2021-02-28] MEDS ORDERED: NOREPINEPHRINE NS PREMIX 16,000 MCG/500 ML BAG IVPB ONE (09:04)
[2021-02-28] MEDS: CALCIUM ACETATE 667 MG CAPSULE (FP) PO SCH ×3 (09:05→16:41)
[2021-02-28] MEDS: LEVOTHYROXINE NA 100 MCG TABLET (FP) PEG SCH (09:05)
[2021-02-28] MEDS: AMINO ACIDS/PROTEIN HYDROLYS 30 ML LIQUID.PKT PO SCH ×2 (09:05→16:41)
[2021-02-28] MEDS: BACITRACIN 15 GM TUBE TOPICAL OINTMENT TP SCH ×2 (09:06→21:00)
[2021-02-28] MEDS: CLOPIDOGREL BISULFATE 75 MG TABLET (FP) PEG SCH (09:07)
[2021-02-28] MEDS: FLUDROCORTISONE ACETATE 0.1 MG TABLET (FP) PO SCH (09:07)
[2021-02-28] MEDS: FOLIC ACID 1 MG TABLET (FP) PEG SCH (09:07)
[2021-02-28] MEDS: PANTOPRAZOLE SODIUM 40 MG VIAL IVPUSH SCH (09:08)
[2021-02-28] MEDS: THIAMINE HCL 100 MG TABLET (FP) NGT SCH (09:08)
[2021-02-28 12:07] LABS: ANISOCYTOSIS 1+; PLATELET ESTIMATE DECREASED
[2021-02-28 12:08] LABS: CORRECTED WBC 5.65 K/mm3; WHITE BLOOD COUNT 8.3 K/mm3 (4.0-10.0)
[2021-02-28] MEDS ORDERED: MORPHINE SULFATE/0.9% NACL/PF 100 MG/100 ML BAG IVPB SCH (12:15)
[2021-02-28] MEDS ORDERED: SODIUM CHLORIDE 1,000 ML IV SCH (13:45)
[2021-02-28] MEDS: CASPOFUNGIN ACETATE 50 MG in SODIUM CHLORIDE 250 ML IVPB SCH (14:13)
[2021-02-28] MEDS: DAPTOMYCIN 550 MG in SODIUM CHLORIDE 50 ML IVPB SCH (14:13)
[2021-02-28] MEDS: CHLORHEXIDINE GLUCONATE 4% CLEANSER FOR DECOLONIZATION TP SCH (21:00)
[2021-03-01] MEDS ORDERED: MEROPENEM 1 GM VIAL (RESTRICTED TO ID) IVPB ONE ×2 (01:17→08:04)
[2021-03-01] MEDS ORDERED: DEXTROSE 5%-WATER 100 ML IVPB ONE ×2 (01:17→08:05)
[2021-03-01] MEDS: MEROPENEM 1 GM in DEXTROSE 5%-WATER 100 ML IVPB SCH ×2 (01:18→09:14)
[2021-03-01] MEDS: NOREPINEPHRINE NS PREMIX 16,000 MCG/500 ML BAG IVPB SCH (04:12)
[2021-03-01] MEDS: HYDROCORTISONE SOD SUCCINATE 100 MG/2 ML VIAL IVPB SCH ×3 (04:12→14:52)
[2021-03-01] MEDS ORDERED: DEXTROSE 50%-WATER - 25 GM/50 ML VIAL IVPUSH ONE ×3 (05:21→14:32)
[2021-03-01] MEDS ORDERED: DEXTROSE 50%-WATER - 25 GM/50 ML VIAL ONE ×2 (05:42→08:19)
[2021-03-01 06:22] LABS: HEMATOCRIT 24.2 % (35.4-49); HEMOGLOBIN 8.4 GM/dL (11.7-16.9); MCHC 34.5 g/dl (32.0-35.9); MEAN CELL VOLUME 95.4 fl (80-96); MEAN PLT VOLUME 10.7 fl (7.5-11.1); PLATELET COUNT 40 10^3/uL (134-434); RBC 2.53 M/mm3 (4.00-5.60)
[2021-03-01 06:27] LABS: CHLORIDE 105 mmol/L (98-107); SODIUM 138 mmol/L (136-145)
[2021-03-01 06:30] LABS: ANION GAP 13 MMOL/L (8-16); CO2 20 mmol/L (21-32); GLUCOSE,RANDOM 66 mg/dL (74-106); MAGNESIUM 3.3 mg/dL (1.8-2.4)
[2021-03-01 06:33] LABS: CREATININE 3.4 mg/dL (0.55-1.3); SGOT/AST 172 U/L (15-37); SGPT/ALT 54 U/L (13-61)
[2021-03-01 06:35] LABS: BILIRUBIN,TOTAL 0.8 mg/dL (0.2-1); TOT PROT 4.2 g/dl (6.4-8.2)
[2021-03-01 06:36] LABS: ALK PHOS 212 U/L (45-117)
[2021-03-01 06:56] LABS: ALBUMIN 0.6 g/dl (3.4-5.0); BLOOD UREA NITROGEN 116.4 mg/dL (7-18); CALCIUM 6.1 mg/dL (8.5-10.1)
[2021-03-01] MEDS: LEVOTHYROXINE NA 100 MCG TABLET (FP) PEG SCH (07:00)
[2021-03-01 07:16] LABS: PHOSPHOROUS 9.6 mg/dL (2.5-4.9)
[2021-03-01] MEDS ORDERED: CALCIUM GLUCONATE 10% - 1,000 MG/10 ML VIAL IVPUSH ONE (08:01)
[2021-03-01] MEDS ORDERED: INSULIN REGULAR HUMAN 100 UNITS/ML *VIAL IVPUSH ONE (08:01)
[2021-03-01] MEDS: CALCIUM ACETATE 667 MG CAPSULE (FP) PO SCH ×2 (08:14→13:00)
[2021-03-01] MEDS: AMINO ACIDS/PROTEIN HYDROLYS 30 ML LIQUID.PKT PO SCH (08:14)
[2021-03-01] MEDS: FLUDROCORTISONE ACETATE 0.1 MG TABLET (FP) PO SCH (09:05)
[2021-03-01] MEDS: CLOPIDOGREL BISULFATE 75 MG TABLET (FP) PEG SCH (09:05)
[2021-03-01] MEDS: PANTOPRAZOLE SODIUM 40 MG VIAL IVPUSH SCH (09:05)
[2021-03-01] MEDS: FOLIC ACID 1 MG TABLET (FP) PEG SCH (09:05)
[2021-03-01] MEDS: FENTANYL NS IVPB 500 MCG/100 ML BAG IVPB SCH ×2 (09:06→14:06)
[2021-03-01] MEDS: THIAMINE HCL 100 MG TABLET (FP) NGT SCH (09:06)
[2021-03-01] MEDS: BACITRACIN 15 GM TUBE TOPICAL OINTMENT TP SCH (09:14)
[2021-03-01 09:33] LABS: ANISOCYTOSIS 3+; MACROCYTOSIS 2+; PLATELET ESTIMATE DECREASED
[2021-03-01] MEDS ORDERED: SODIUM BICARBONATE 8.4% - 75 MEQ in DEXTROSE 5%-WATER - 1,000 ML IV SCH (09:45)
[2021-03-01 10:10] LABS: CORRECTED WBC 4.33 K/mm3; WHITE BLOOD COUNT 7.7 K/mm3 (4.0-10.0)
[2021-03-01] MEDS: VASOPRESSIN 40 UNITS/100 ML BAG IV SCH (10:30)
[2021-03-01] MEDS ORDERED: PT OWN MED DRAWER 7, Y5N ONE ×3 (12:38→14:35)
[2021-03-01 13:46] VITALS: TEMP 100
[2021-03-01] MEDS: DAPTOMYCIN 550 MG in SODIUM CHLORIDE 50 ML IVPB SCH (14:06)
[2021-03-01] MEDS ORDERED: FENTANYL IVPB 500 MCG/100 ML BAG IVPB SCH (14:45)
[2021-03-01] MEDS ORDERED: NOREPINEPHRINE D5W PREMIX 16,000 MCG/500 ML BAG IVPB SCH (14:45)
[2021-03-01] MEDS: PROPOFOL 1,000,000 MCG/100 ML VIAL IVPB SCH (14:51)
[2021-03-01] MEDS: CASPOFUNGIN ACETATE 50 MG in SODIUM CHLORIDE 250 ML IVPB SCH (14:51)
[2021-03-01] MEDS ORDERED: CEFTAZIDIME/AVIBACTAM 1.25 GM in DEXTROSE 5%-WATER - 100 ML IVPB SCH (15:30)
[2021-03-01 19:20] VITALS: BP 102/65; PULSE 104
== END 2021-03-01 15:45 | disposition expired | DRG 870 ==
LOC: JER 09:56 → JERBED 12:02 → JICU 14:17
PROVIDERS: ADMIT Internal Medicine Pulmonary Disease; ATTEND Internal Medicine Pulmonary Disease
PROC: 5A1955Z Respiratory Ventilation, Greater than 96 Consecutive Hours (ICD-10-PCS; principal; 2021-02-20)
PROC: 05HM33Z Insertion of Infusion Device into Right Internal Jugular Vein, Percutaneous Approach (ICD-10-PCS; 2021-02-20)
PROC: B543ZZA Ultrasonography of Right Jugular Veins, Guidance (ICD-10-PCS; 2021-02-20)
PROC: 05HN33Z Insertion of Infusion Device into Left Internal Jugular Vein, Percutaneous Approach (ICD-10-PCS; 2021-02-22)
PROC: B544ZZA Ultrasonography of Left Jugular Veins, Guidance (ICD-10-PCS; 2021-02-22)
PROC: 30233N1 Transfusion of Nonautologous Red Blood Cells into Peripheral Vein, Percutaneous Approach (ICD-10-PCS; 2021-02-27)
PROC: 5A12012 Performance of Cardiac Output, Single, Manual (ICD-10-PCS; 2021-03-01)
DX: A41.50 Gram-negative sepsis, unspecified (principal); R65.21 Severe sepsis with septic shock; N17.0 Acute kidney failure with tubular necrosis; K72.00 Acute and subacute hepatic failure without coma; J96.21 Acute and chronic respiratory failure with hypoxia; E43 Unspecified severe protein-calorie malnutrition; N18.4 Chronic kidney disease, stage 4 (severe); E87.2 Acidosis; I24.8 Other forms of acute ischemic heart disease; J96.11 Chronic respiratory failure with hypoxia; L97.909 Non-pressure chronic ulcer of unspecified part of unspecified lower leg with unspecified severity; N30.01 Acute cystitis with hematuria; N17.9 Acute kidney failure, unspecified; Z99.11 Dependence on respirator [ventilator] status; R64 Cachexia; I12.9 Hypertensive chronic kidney disease with stage 1 through stage 4 chronic kidney disease, or unspecified chronic kidney disease; J45.909 Unspecified asthma, uncomplicated; E03.9 Hypothyroidism, unspecified; D64.9 Anemia, unspecified; E78.5 Hyperlipidemia, unspecified; E83.51 Hypocalcemia; I46.9 Cardiac arrest, cause unspecified; I95.9 Hypotension, unspecified; D69.6 Thrombocytopenia, unspecified; E88.09 Other disorders of plasma-protein metabolism, not elsewhere classified; Z68.34 Body mass index [BMI] 34.0-34.9, adult; Z93.0 Tracheostomy status
CPT/HCPCS: 36415; 36430; 36600; 71045-TC-FY; 74018-TC-FY; 76700-TC; 76775-TC; 80048; 80053; 81003; 82803; 82962; 83605; 83735; 84100; 84484; 85025; 85384; 85610; 85730; 86850; 86900; 86901; 86922; 87040; 87086; 87106; 87184; 87186; 87804; 93005; 93010; 94002; 94640; 99285-25; C9803; J0131; J0637; J0878; J3490; P9058; U0003; U0005